=== PATIENT | female | born 2005 | race Two or more races ===

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

== ENCOUNTER 2024-02-08 14:37 | Outpatient (AMB) | payer OTHER, SELFPAY ==
--- NOTE | 2024-02-08 14:41 | A.OFFVISP_ITS ---
Intake Vital Signs 02/08/24 14:46 Height 5 ft 4.5 in Height percentile 75 Weight 138 lb Weight percentile 75 Measurement Type Standing Scale BMI 23.3 BMI percentile 75 Temp 98.1 F Temp Source Temporal Artery Scan Pulse 88 Pulse Source Pulse Oximeter BP 108/66 Blood Pressure Source Manual Cuff/Palpation Position Sitting Pulse Oximetry (%) 99 Pediatric Intake Visit Reasons: [facility] 18 year female Accompanied by: Self / Same As Patient Allergies Seasonal Allergies Allergy (Mild, Verified 02/08/24 14:42) sneezing, runny nose bee pollen Allergy (Unknown, Verified 02/08/24 14:42) Unknown mold Allergy (Unknown, Verified 02/08/24 14:42) Unknown Medication List - Last Reconciled 02/08/24 by Eunice Gavin MD epinephrine (EpiPen) 0.3 mg (0.3 mL) IM Q15M PRN infliximab-dyyb (Inflectra) 400 mg IV Q6W norethindrone-ethin estradiol 0.4-35 mg-mcg (Yaw (28)) 1 tab PO DAILY Dental Screening Dental Screen Date: 02/08/24 Did your child have a dental visit in the last 12 months for preventative care, such as check-ups/dental cleaning?: Yes Was there a time your child needed dental care in the last 12 months, but was not received?: No Can we apply fluoride varnish to your child's teeth today?: No Was dental information given to patient?: Patient has dentist HPI [facility] 18-21 Year Female since last appt she has been cutting down on marijuana use. she now works out at gym without going out to smoke during her workout. yesterday she went to the gym without using marijuana first- she usually smokes (pen) before she goes to the gym. she didnt like how she felt - she was too aware of people around her. she doesnt like being sober because she feels too much and she doesnt like it. she knows she needs to d/c use to health concerns but cant deal with how she feels when she is sober. she does not want to take lexapro- it gave her HAs and she didnt like how it made her feel. she also uses marijuana to help with her pain. it is not just GI pain but also joints. she did not schedule appt with GI to discuss breakthrough sxs and does not know when her next appt with them is. her therapist is virtual and is trying to get her to decrease to 1x/mo visits. she would like to continue with more frequent sessions and she feels like her therapist frequently forgets things she tells her and this really bothers her so she would like to find a new therapist. she would prefer to be in person for this Nutrition she struggles with eating. she often just isnt hungry and when she does eat she sometimes has SA and/or diarrhea. mostly she just doesnt feel hungry and has to force herself to eat. this is part of why she smokes marijuana- it helps her with appetite. recently she only wants to eat things that are sweet. everything else causes nausea Exercise Sports and activities: Reports plays individual sports (she is working out at the gym most days now) and watches <2 hours of screen time daily Exercise frequency: 5-6 times per week Genitourinary Urine output: normal Genitourinary: LMP unknown (on OCP and nexplanon) Dental Dental care: Reports receives dental care Behavioral Behavior: normal peer interactions Mental health: feels anxious Educational/Employment currently working at [email or web address] but plans to give her notice. 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 Work: part-time Living situation: lives at home education: attends school (she is doing great! mostly As. taking statistics/mongolian/psychology and film. 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[employer] Sexual sexual history: currently sexually active and control method Control Method: Oral Contraceptives Sleep has trouble falling asleep and marijuana also helps with this Sleep location: 4-7 years: own bed Safety Car safety: well child 16-17 years: seat belt Bicycle/ATV safety: rides a bicycle and wears a helmet Home Safety: safe practices around pool and water, Has poison control number, Water heater temp <120, Working smoke detector in home, Working carbon monoxide detector in home and Fire Extinguisher in home [facility] Substance Abuse Tobacco History Patient Tobacco Use Status: Never used Tobacco Alcohol History Alcohol intake: current Alcohol intake frequency: other (occasional) Substance Use History Use of substances other than those prescribed or required for medical reasons: Yes Substance Use Type: Marijuana Substance Use Frequency: Daily Counseling given: Counseling given and Referred to Counseling Pediatric Weight Assessment Diet counseling done: Yes Physical activity counseling done: Yes PFS Medical History (Updated 02/08/24 @ 16:17 by Eunice Gavin MD) Depression Prolonged menstrual cycle Environmental allergies Mild intermittent asthma Surgical History No pertinent past surgical history Family History (Updated 02/08/24 @ 15:39 by Elfego Maddox CMA) Mother Depression Father No problems noted. Sister Depression ADHD Maternal Grandmother Depression Maternal Aunt Bipolar disorder Alcohol abuse Social History (Updated 02/08/24 @ 15:37 by Elfego Maddox CMA) Household Members: Family Household Members Other:: lives with mother. sees dad. Both parents involved: Yes Alcohol intake: current Substance Use Type: Marijuana Cognitive needs: No Hearing needs: No Vision needs: No Questionnaire CRAFFT Screening Tool PART A: In the PAST 12 MONTHS, did you: Drink any alcohol (more than few sips)? (Do not count sips of alcohol taken during family or adventism events.): Yes Smoke any marijuana or hashish?: Yes Use anything else to get high? (includes illegal drugs, over the counter/prescription drugs, or things that you sniff/byrne?): No PART B: If answered YES to ANY above: Have you ever been in a CAR driven by someone (including yourself) who was high or had been using alcohol or drugs?: No Do you ever use alcohol or drugs to RELAX, feel better about yourself, or fit in?: Yes Do you ever use alcohol or drugs while you are by yourself, or ALONE?: Yes Do you ever FORGET things while using alcohol or drugs?: Yes Do your FAMILY or FRIENDS ever tell you that you should cut down on your drinking or drug use?: Yes Have you ever gotten into TROUBLE while you were using alcohol or drugs?: No CRAFFT Assessment Charge Crafft: HOLGERT 38156 PHQ-9 Over the last 2 weeks, how often have you been bothered by any of the following problems? 1. Little interest or pleasure in doing things: several days 2. Feeling down, depressed, or hopeless: several days 3. Trouble falling or staying asleep, or sleeping too much: several days 4. Feeling tired or having little energy: several days 5. Poor appetite or overeating: not at all 6. Feeling bad about yourself - or that you are a failure or have let yourself or your family down: several days 7. Trouble concentrating on things, such as reading the newspaper or watching television: several days 8. Moving or speaking so slowly that other people could have noticed. Or the opposite - being so fidgety or restless that you have been moving around a lot more than usual: not at all 9. Thoughts that you would be better off or of hurting yourself in some way: not at all Total score: 6 Depression Screening Interpretation: Negative Depression Screening Done: Yes 92834 - PHQ-9 Billing: Yes Source: Developed by Drs. 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 Thrive Questionnaire Date Thrive assessed: 02/08/24 I am a: Patient What is your living situation today?: I have a steady place to live Within the past 12 months, did the food you bought not last and you didn't have the money to get more?: Never true Within the past 12 months, did you worry whether your food would run out before you got money to buy more?: Never true Do you have trouble paying for medicines?: Yes Do you have trouble getting transportation to medical appointments?: No Do you have trouble paying your heating and electricity bill?: No Do you have trouble taking care of your child, family member or friend?: No Do you have trouble with day-to-day activities such as bathing, preparing meals, shopping, managing finances, etc.?: No Are you currently unemployed and looking for a job?: No Are you interested in more education?: No THRIVE Score: 0 ACT Questionnaire In the past 4 weeks, how much of the time did your asthma keep you from getting as much done at work, school or at home?: None of the time During the past 4 weeks, how often have you had shortness of breath?: 1-2 times a week During the past 4 weeks, how often did your asthma symptoms wake you up at night or earlier than usual in the morning?: Not at all During the past 4 weeks, how often have you had to use your rescue inhaler or nebulizer medication?: Not at all How would you rate your asthma control during the past 4 weeks?: Completely controlled ACT Interpretation: Negative Score: 24 JAVI-7 AMB Questionnaire JAVI-7 Date JAVI - 7 assessed: 02/08/24 Feeling nervous, anxious, or on edge: 1 = Several days Not being able to stop or control worryin = Not at all Worrying too much about different things: 1 = Several days Trouble relaxin = Not at all Being so restless that it is hard to sit still: 0 = Not at all Becoming easily annoyed or irritable: 2 = More than half the days Feeling afraid as if something awful might happen: 0 = Not at all Total JAVI-7 score (0-4 normal; 5-9 mild; 10-14 moderate; 15-21 severe): 4 Source: Developed by Drs. 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 JAVI-7 Assessment Billing JAVI-7 Assessment Tool: JAVI-7 Assessment 63340 Review of Systems Const All systems reviewed & are unremarkable except as noted in HPI and below PE 13-21 years Constitutional General: alert and active Nutritional appearance: well nourished HENMT Ears: Reports external ears normal, TMs normal bilaterally and EAC's normal Teeth: Reports dentition normal Throat: Reports posterior oropharynx normal Eyes Eyes: Reports appearance normal (normal fundoscopic exam bilateral) Conjunctivae: Reports conjunctivae normal Pupils: Reports PERRL EOM: Reports EOM intact bilaterally Neck Appearance: Reports normal appearance, no masses and FROM Lymphatic: Reports no lymphadenopathy noted Resp Effort & Inspection: Reports normal respiratory effort Auscultation: Reports clear to auscultation bilaterally Cardio Rate: Reports regular rate Rhythm: Reports regular rhythm Heart sounds: Reports S1 normal and S2 normal (no murmur) GI Palpation: Reports soft, non-tender, no hepatomegaly, no splenomegaly and no masses Auscultation: Reports normal bowel sounds Musc Thoracic/Lumbar Spine: Reports thoracic and lumbar spine normal to inspection Skin General: Reports no rashes or lesions noted Neuro General: Reports oriented Motor Exam: Reports normal strength and tone (CN 2-12 grossly normal) and normal gait and balance Assessment & Plan Assessment & Plan (1) Encounter for well adult exam with abnormal findings: Code(s): Z00.01 - Encounter for general adult medical examination with abnormal findings Plan: Discussed age-appropriate AG including peer relationships/peer pressure, family relationships, abstinence/safe sex, healthy relationships/sexuality, internet safety, drug/alcohol/cigarette/vaping/marijuana avoidance, sleep, healthy diet, importance of daily physical activity, mood, stress management, conflict management, driving safety, seatbelt use, dental health, future plans, gun safety, (2) Anxiety: Code(s): F41.9 - Anxiety disorder, unspecified Plan: discussed need for med that will treat her anxiety instead of using marijuana to self treat. given chronic illness contributing to sxs and anxiety will d/w [facility] and request consult. f/u 3 mos/sooner prn (3) Marijuana dependence: Code(s): F12.20 - Cannabis dependence, uncomplicated Plan: counseled extensively regarding risks of use. discussed self-treatment for anxiety. re-iterated need to work with GI to develop alternative plan to manage her chrohns sxs. she has decreased use and plans to continue to do so. discussed treatment programs -she is willing to discuss options with CN. message sent regarding programs and to help with finding new therapist. f/u 3 mos/sooner prn Coding Level of Care Code Est Pt Prev Care 18-39y(13036) Diagnoses Encounter for well adult exam with abnormal findings Z00.01 Anxiety F41.9 Marijuana dependence F12.20 Additional Codes CRAFFT Assessment Charge - Crafft: CRAFFT 56455 ([id number]) JAVI-7 Assessment Billing - JAVI-7 Assessment Tool: JAVI-7 Assessment 53803 ([id number])
[2024-02-08 14:46] VITALS: BP 108/66; PULSE 88; TEMP 36.7; O2SAT 99; BMI 23.3
== END 2024-02-08 15:17 | disposition home or self-care (01) ==
PROVIDERS: PCP Pediatrics; Visit Provider Pediatrics
DX: Z00.01 Encounter for general adult medical examination with abnormal findings (principal); F41.9 Anxiety disorder, unspecified; F12.20 Cannabis dependence, uncomplicated; Z13.30 Encounter for screening examination for mental health and behavioral disorders, unspecified
CPT/HCPCS: 96127; 96160; 99395

== ENCOUNTER 2024-02-23 08:37 | Outpatient (AMB) | payer OTHER, SELFPAY ==
--- NOTE | 2024-02-23 08:35 | MHC.OFVISPED ---
Intake Vital Signs 02/23/24 08:45 Height 5 ft 4.5 in Height percentile 75 Weight 134 lb 8 oz Weight percentile 75 Measurement Type Standing Scale BMI 22.7 BMI percentile 75 Temp 98.2 F Temp Source Temporal Artery Scan Pulse 93 Pulse Source Pulse Oximeter Pulse Oximetry (%) 99 Pediatric Intake Visit Reasons: White spot on tonsil Accompanied by: Self / Same As Patient Allergies Seasonal Allergies Allergy (Mild, Verified 02/23/24 08:38) sneezing, runny nose bee pollen Allergy (Unknown, Verified 02/23/24 08:38) Unknown mold Allergy (Unknown, Verified 02/23/24 08:38) Unknown Dental Screening Dental Screen Date: 02/08/24 HPI HPI Comments Details: 18 year old female with history of Crohn's disease on immunosuppressant treatment presents for evaluation of white debris in tonsils. More on left side than right. Admits to PND, intermittent throat irritation. No sig pain in throat, no dysphagia or SOB. No recent fevers/chills. Denies sig halitosis. Was able to remove debris with salt water gargles. [facility] Medical History Depression Prolonged menstrual cycle Environmental allergies Mild intermittent asthma Surgical History No pertinent past surgical history Family History Mother Depression Father No problems noted. Sister Depression ADHD Maternal Grandmother Depression Maternal Aunt Bipolar disorder Alcohol abuse Social History Household Members: Family Household Members Other:: lives with mother. sees dad. Both parents involved: Yes Alcohol intake: current Alcohol intake frequency: other (occasional) Substance Use Type: Marijuana Cognitive needs: No Hearing needs: No Vision needs: No Review of Systems Const All systems reviewed & are unremarkable except as noted in HPI and below Pediatric Exam Const Constitutional General: no acute distress, well developed, alert and awake Nutritional appearance: well nourished [facility] Head: normal to inspection, normocephalic and atraumatic Ears: hearing grossly normal bilaterally, external ears normal, TM's normal bilaterally and EAC's normal Nose: Normal external nose present, Normal nares present and Normal nasal mucous membranes and turbinates present Mouth: Normal oral and palatal mucosa present, lip normal, tongue normal, moist mucous membranes and palate normal Throat: posterior oropharynx normal, tonsils normal (2+, cryptic on left, no debris) and uvula midline Eyes General: appearance normal, both eyes and all related structures Eyelids: eyelids normal Sclerae: sclerae normal Pupils: Equal, round and reactive pupils present Neck Lymphatic: no lymphadenopathy noted Chest Chest: normal inspection of the chest Resp Effort & Inspection: normal respiratory effort Auscultation: clear to auscultation bilaterally Cardio Rate: regular rate Rhythm: regular rhythm Heart sounds: S1 normal heart sound present and S2 normal heart sound present Neuro Cranial nerves: Yes Equal, round and reactive pupils present Assessment & Plan Assessment & Plan (1) Calculus of tonsil: Code(s): J35.8 - Other chronic diseases of tonsils and adenoids Plan: No signs of infection on today's exam. Reassurance provided. Recommended regular gargles with salt water or Biotene mouth wash. Can manually disimpact tonsils with blunt object/water pik. Consider ENT referral for chronic throat pain or sig halitosis. Otherwise, f/u as needed. (2) PND (post-nasal drip): Code(s): R09.82 - Postnasal drip Plan: Recommended trial of Flonase, 2 sprays in each nostril once a day. F/u if sx worsen or do not improve. Coding Level of Care Code Est Pt Level 3 (98787) Diagnoses Calculus of tonsil J35.8 PND (post-nasal drip) R09.82
[2024-02-23 08:45] VITALS: PULSE 93; TEMP 36.8; O2SAT 99; BMI 22.7
== END 2024-02-23 08:58 | disposition home or self-care (01) ==
PROVIDERS: PCP Pediatrics; Visit Provider Physician Assistant
DX: J35.8 Other chronic diseases of tonsils and adenoids (principal); R09.82 Postnasal drip
CPT/HCPCS: 99213

== ENCOUNTER 2024-04-06 15:48 | Outpatient (AMB) | payer OTHER, SELFPAY ==
--- NOTE | 2024-04-06 15:54 | AM.OFFVISNUR ---
Intake Intake Visit Reasons: TB screen Allergies Seasonal Allergies Allergy (Mild, Verified 02/23/24 08:38) sneezing, runny nose bee pollen Allergy (Unknown, Verified 02/23/24 08:38) Unknown mold Allergy (Unknown, Verified 02/23/24 08:38) Unknown Nursing Note Pt is here today for ppd.. PPD planted left forearm. Pt's mom is an RN, she will call on Tuesday with reading. Office Meds tuberculin PPD 5 tub. unit/0.1 mL intradermal injection solution Performing Provider: Eunice Gavin MD Performing Location: [facility] [place] Pediatric Care Administered by: Claribel Garcia RN on 04/06/24 16:02 Dose Route Admin Location Dispensed Lot Number Expiration Date NDC Basic [employer] 0.1 mL intradermal left lower forearm 0.1 mL [id number] 03/06/27 07995-007-73 [employer] Coding Assessment & Plan Assessment & Plan Orders: Orders AMB PPD Planted 04/06/24 Z11.1 - Encounter for screening for respiratory tuberculosis
== END 2024-04-06 16:03 | disposition home or self-care (01) ==
PROVIDERS: PCP Pediatrics; Visit Provider Pediatrics
DX: Z11.1 Encounter for screening for respiratory tuberculosis (principal)
CPT/HCPCS: 86580

== ENCOUNTER 2024-05-16 15:29 | Outpatient (AMB) | payer OTHER, SELFPAY ==
--- NOTE | 2024-05-16 15:56 | A.OFFVISP_ITS ---
Vital Signs 05/16/24 15:57 Weight 134 lb 6 oz Weight percentile 75 Temp 99.1 F Temp Source Temporal Artery Scan Pulse 88 Pulse Source Pulse Oximeter BP 94/62 Pulse Oximetry (%) 98 Pediatric Intake Visit Reasons: follow up Hourly Sales Staff Required: No Accompanied by: alone Allergies Seasonal Allergies Allergy (Mild, Verified 05/16/24 15:57) sneezing, runny nose bee pollen Allergy (Unknown, Verified 05/16/24 15:57) Unknown mold Allergy (Unknown, Verified 05/16/24 15:57) Unknown Medication List - Last Reconciled 05/16/24 by Eunice Gavin MD epinephrine (EpiPen) 0.3 mg (0.3 mL) IM Q15M PRN infliximab-dyyb (Inflectra) 400 mg IV Q6W norethindrone-ethin estradiol 0.4-35 mg-mcg (Carlyleva (28)) 1 tab PO DAILY Dental Screening Dental Screen Date: 02/08/24 HPI HPI follow up: Details: working FT at [employer] for the summer. gym at least 4x/wk. does not use marijuana before work or gym or during work day. didnt smoke at all for a full week but then got a period and has cramps and is using marijuana for this. she also got a GI illness from a child in daycare and this caused her to have prolonged diarrhea. it is getting better. she has a new therapist and is seeing her qoweek in person. she likes her alot. she had some SI 1 month ago. she does not have any current SI. what typically triggers SI for her is if she is really broke or fighting with mom. she denies any active suicidal intent - only passive ideation- no plan. she does not have an appt with [facility]. she says they told her she had to be in state [facility] to make the appt - not just to have the appt as either TH or in person. she is not sure if the therapist can help with a psych referral. [facility] Medical History Depression Prolonged menstrual cycle Environmental allergies Mild intermittent asthma Surgical History No pertinent past surgical history Family History Mother Depression Father No problems noted. Sister Depression ADHD Maternal Grandmother Depression Maternal Aunt Bipolar disorder Alcohol abuse Social History Household Members: Family Household Members Other:: lives with mother. sees dad. Both parents involved: Yes Alcohol intake: current Alcohol intake frequency: other (occasional) Substance Use Type: Marijuana Cognitive needs: No Hearing needs: No Vision needs: No Review of Systems Const Reports as per HPI GI Reports as per HPI Psych Reports as per HPI Pediatric Exam Const Constitutional General: healthy appearing and no acute distress Psych Appearance: grossly normal Mental Status: mental status grossly normal Speech and movement: Normal speech and movement present Mood: congruent mood Attitude: cooperative Thought process: Normal thought process present Assessment & Plan Assessment & Plan (1) Anxiety: Code(s): F41.9 - Anxiety disorder, unspecified Category: Medical (2) Marijuana dependence: Code(s): F12.20 - Cannabis dependence, uncomplicated Category: Medical Plan currently doing fairly well and has cut back a lot on marijuana use. discussed need for psychiatric eval for med consult. she will d/w therapist and if therapist is not able to refer her to [place] based provider will call back and at that point will [place] back to [facility] for eval or new recommendation. in the meantime encouraged her to continue to decrease/discontinue marijuana use. also discussed need to contact crisis for any SI recurrence. f/u 3 mos/sooner prn.
[2024-05-16 15:57] VITALS: BP 94/62; PULSE 88; TEMP 37.3; O2SAT 98
== END 2024-05-16 16:15 | disposition home or self-care (01) ==
PROVIDERS: PCP Pediatrics; Visit Provider Pediatrics
DX: F41.9 Anxiety disorder, unspecified (principal); F12.20 Cannabis dependence, uncomplicated
CPT/HCPCS: 99214

== ENCOUNTER 2024-08-17 15:46 | Outpatient (AMB) | payer OTHER, SELFPAY ==
--- NOTE | 2024-08-17 15:50 | MHC.OFVISPED ---
Vital Signs 08/17/24 15:58 Height 5 ft 4.5 in Height percentile 75 Weight 142 lb Weight percentile 75 BMI 24.0 BMI percentile 75 Temp 98.7 F Temp Source Oral Pulse 76 Pulse Source Pulse Oximeter BP 112/70 Pulse Oximetry (%) 95 Pediatric Intake Visit Reasons: BH-Depression [employer] Packages Leak Tester Required: No Accompanied by: Mother Allergies Seasonal Allergies Allergy (Mild, Verified 08/17/24 15:50) sneezing, runny nose bee pollen Allergy (Unknown, Verified 08/17/24 15:50) Unknown mold Allergy (Unknown, Verified 08/17/24 15:50) Unknown Medication List - Last Reconciled 08/17/24 by Eunice Gavin MD epinephrine (EpiPen) 0.3 mg (0.3 mL) IM Q15M PRN infliximab-dyyb (Inflectra) 400 mg IV Q6W norethindrone-ethin estradiol 0.4-35 mg-mcg (Carlyleva (28)) 1 tab PO DAILY Dental Screening Dental Screen Date: 02/08/24 HPI HPI BH-Depression: Details: she is seeing same therapist and really likes her. she sees her once every 3 weeks. therapist referred her to psychiatrist but she has not scheduled anything. she 1) doesnt think she wants/needs to take medication and 2) doesnt want to have one more doctor. she does not think she needs meds as she thinks her mood is generally pretty good. she reports passive SI approx 1 month ago (answered yes on form but denies any current or recent SI). (PHQ9 score is 8 but positive because of +SI). she feels that she has seasonal depression only (wintertime). she took lexapro in the past and it caused her to have HAs so she does not want to take it again. she continues to use marijauna daily. she has been using it more often recently because mom has been on me a lot and I just cant deal with mom . Marijuana makes her feel happy and then she can deal with it. It also helps relieve stomach cramps and joint pain that she gets so she also smokes for this reason. she does not consider marijuana to be a medication because it is a plant. she gets her marijuana from her mom who gets it from a dispensary. she saw GI and he advised her that she most likely has cannabis induced GI sxs. PFSH Medical History Depression Prolonged menstrual cycle Environmental allergies Mild intermittent asthma Surgical History No pertinent past surgical history Family History Mother Depression Father No problems noted. Sister Depression ADHD Maternal Grandmother Depression Maternal Aunt Bipolar disorder Alcohol abuse Social History Household Members: Family Household Members Other:: lives with mother. sees dad. Both parents involved: Yes Alcohol intake: current Alcohol intake frequency: other (occasional) Substance Use Type: Marijuana Cognitive needs: No Hearing needs: No Vision needs: No PHQ-9: Modified for Teens Feeling down, depressed, irritable or hopeless?: Several Days Little interest or pleasure in doing things?: Several Days Trouble falling asleep, staying asleep, or sleeping too much?: Not at all Poor appetite, weight loss or overeating?: Nearly every day Feeling tired, or having little energy?: Several Days Feeling bad about yourself-or feeling that you are a failure, or that you let yourself/your family down?: Several Days Trouble concentrating on things like school work, reading, or watching TV?: Not at all Moving/speaking so slowly that other people have noticed? Or the opposite-being so fidgety that you were moving more than usual?: Not at all Thoughts that you would be better off , or of hurting yourself in some way?: Several Days In the past year have you felt depressed or sad most days, even if you felt okay sometimes?: Yes How difficult have these problems made it for you to do your work, take care of things at home, or get along with other?: Not difficult at all Has there been a time in the past month when you have had serious thoughts about ending your life?: Yes Have you ever, in your entire life, tried to kill yourself or made a suicide attempt?: Yes Score: 8 Depression Screening Interpretation: Positive Depression Screening Follow-up: Existing condition, New Medication prescribed, Community Mental Health Worker F/U and Follow-up Visit Requested Depression Screening Done: Yes PHQ Assessment Billing PHQ Assessment Tool: PHQ Assessment 26668 Review of Systems Const Reports as per HPI GI Reports as per HPI Psych Reports as per HPI Pediatric Exam Const Constitutional General: healthy appearing and no acute distress Psych Appearance: grossly normal Mental Status: mental status grossly normal Speech and movement: Normal speech and movement present Mood: congruent mood Attitude: cooperative Thought content: no suicidality Assessment & Plan Assessment & Plan (1) Anxiety: Code(s): F41.9 - Anxiety disorder, unspecified Category: Medical Plan: today she is agreeable to trial meds to help with mood regulation specifically irritability and reactivity. Reviewed options for meds including potential side effects and adverse reactions including BBW. Rx sent for sertraline. Advised crisis for any suicidal ideation. Followup in one month () (2) Cannabis use disorder: Code(s): F12.90 - Cannabis use, unspecified, uncomplicated Category: Medical Plan: discussed pts dependence on marijuana, adverse sxs from marijuana, and use of it as medication for mood. counseled re lack of oversight of dispensaries and risks involved with regular use. she is contemplative today and agrees to try to cut down. she states that she is not able to completely quit but will decrease use. message to CN to provide pt with info about programs to support her with this process. Plan total visit time spent = 40 minutes including counseling, prescription management and documentation. Medications: New sertraline take 12.5 mg (0.5 tab) by mouth once daily for 1 week then increase to 25 mg (one tab)by mouth once daily 30 tabs 0RF JAVI-7 AMB Questionnaire JAVI-7 Date JAVI - 7 assessed: 08/17/24 Source: Developed by Drs. Santiago Gould, Gloria Silver, Cyrus Oliver and colleagues, with an educational job from [employer].
[2024-08-17 15:58] VITALS: BP 112/70; PULSE 76; TEMP 37.1; O2SAT 95; BMI 24.0
== END 2024-08-17 16:30 | disposition home or self-care (01) ==
PROVIDERS: PCP Pediatrics; Visit Provider Pediatrics
DX: F41.9 Anxiety disorder, unspecified (principal); F12.20 Cannabis dependence, uncomplicated; Z13.39 Encounter for screening examination for other mental health and behavioral disorders

== ENCOUNTER → 2024-08-17 15:46 | Outpatient (BNVA) | payer OTHER, SELFPAY | PROVIDERS: PCP Pediatrics; Visit Provider Pediatrics | DX: F41.9 Anxiety disorder, unspecified (principal); F12.20 Cannabis dependence, uncomplicated | CPT/HCPCS: 96127 ==

== ENCOUNTER 2024-11-21 11:07 | Outpatient (AMB) | payer OTHER, SELFPAY ==
--- NOTE | 2024-11-21 11:07 | A.OFFVISP_ITS ---
Vital Signs 11/21/24 11:12 Height 5 ft 4.5 in Height percentile 75 Weight 145 lb 2 oz Weight percentile 75 Measurement Type Standing Scale BMI 24.5 BMI percentile 85 Temp 98.3 F Temp Source Temporal Artery Scan Pulse 86 Pulse Source Pulse Oximeter BP 112/64 Blood Pressure Source Manual Cuff/Palpation Position Sitting Pulse Oximetry (%) 98 Pediatric Intake Visit Reasons: UC f/u dx RSV on 11/16, ongoing cough, eczema flare Accompanied by: Self / Same As Patient Allergies Seasonal Allergies Allergy (Mild, Verified 11/21/24 11:08) sneezing, runny nose bee pollen Allergy (Unknown, Verified 11/21/24 11:08) Unknown mold Allergy (Unknown, Verified 11/21/24 11:08) Unknown Medication List - Last Reconciled 11/21/24 by Rosina Silver PA-C epinephrine (EpiPen) 0.3 mg (0.3 mL) IM Q15M PRN hydrocortisone 2.5% 1 appl topical BID infliximab-dyyb (Inflectra) 400 mg IV Q6W norethindrone-ethin estradiol 0.4-35 mg-mcg (Balalirezava (28)) 1 tab PO DAILY sertraline take 12.5 mg (0.5 tab) by mouth once daily for 1 week then increase to 25 mg (one tab)by mouth once daily Dental Screening Dental Screen Date: 02/08/24 HPI Comments Details: The patient is a 19-year-old female presenting with concerns related to RSV and eczema. The patient reports initial symptoms of RSV on Nov 10, following exposure on Nov 09, and was subsequently diagnosed on Nov 16 at an urgent care center. Symptoms included difficulty breathing on Nov 13 and , and persistent coughing. She has a history of asthma which complicates her condition. 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 Notes she has been feeling better despite lingering cough and today is wondering if she is safe to return to work. The patient's eczema, which has been present since August, has worsened over the past week, possibly due to physical stress from illness. It is primarily affecting her hands and was causing significant discomfort, impacting daily activities and care routines with young children at her workplace. [facility] Medical History Depression Prolonged menstrual cycle Environmental allergies Mild intermittent asthma Surgical History No pertinent past surgical history Family History Mother Depression Father No problems noted. Sister Depression ADHD Maternal Grandmother Depression Maternal Aunt Bipolar disorder Alcohol abuse Social History Household Members: Family Household Members Other:: lives with mother. sees dad. Both parents involved: Yes Alcohol intake: current Alcohol intake frequency: other (occasional) Substance Use Type: Marijuana Cognitive needs: No Hearing needs: No Vision needs: No Review of Systems Const All systems reviewed & are unremarkable except as noted in HPI and below Pediatric Exam Const Constitutional General: cooperative, healthy appearing, comfortable and no acute distress Nutritional appearance: normal and well nourished HENPR Head: normal to inspection, normocephalic and atraumatic Ears: external ears normal, TM's normal bilaterally and EAC's normal Nose: Normal external nose present, Normal nares present and Nasal discharge present clear Mouth: Normal oral and palatal mucosa present, oropharynx normal and moist mucous membranes Throat: uvula midline and abnormal tonsil (mildly enlarged and erythematous, no exudate or petechiae noted.) Eyes General: appearance normal, both eyes and all related structures Pupils: Equal, round and reactive pupils present Neck Thyroid: Thyroid normal Lymphatic: no lymphadenopathy noted Resp Effort & Inspection: normal respiratory effort Auscultation: clear to auscultation bilaterally, no crackles, no rales, no rhonchi, no stridor and no wheezes Cardio Rate: regular rate Rhythm: regular rhythm Heart sounds: S1 normal heart sound present and S2 normal heart sound present Skin Other: patches of eczema noted on the palms of the bilateral hands, no signs of secondary infection Neuro Cranial nerves: Yes Equal, round and reactive pupils present Assessment & Plan Assessment & Plan (1) Viral upper respiratory illness: Code(s): J06.9 - Acute upper respiratory infection, unspecified Plan: - Consider ongoing RSV symptoms, advise wearing a mask if actively coughing, particularly when engaging with others at work or at home. - Recommend trial use of asthma inhaler to potentially alleviate cough symptoms. - F/up as needed for any new or worsening symptoms. (2) Dyshidrotic eczema: Code(s): L30.1 - Dyshidrosis [pompholyx] Plan: - Manage eczema with continued use of Aquaphor and introduce a low-potency steroid cream, monitoring its effectiveness over a week. - Schedule follow-up to evaluate the need for a stronger topical treatment if there?s no improvement in the eczema condition. - Discussed maintaining moisturizing routines post washing hands, avoiding potential irritants, and considering unscented, dye-free products such as Aveeno or Curel. Patient was informed and verbally consented to the use of an ambient scribe for clinic note documentation during this visit. Medications: New hydrocortisone 2.5% 1 appl topical BID 90 grams 0RF Coding Level of Care Code Est Pt Level 4 (07099) Diagnoses Viral upper respiratory illness J06.9 Dyshidrotic eczema L30.1
[2024-11-21 11:12] VITALS: BP 112/64; PULSE 86; TEMP 36.8; O2SAT 98; BMI 24.5
== END 2024-11-21 11:29 | disposition home or self-care (01) ==
PROVIDERS: PCP Pediatrics; Visit Provider Physician Assistant
DX: J06.9 Acute upper respiratory infection, unspecified (principal); L30.1 Dyshidrosis [pompholyx]

== ENCOUNTER → 2024-11-21 11:07 | Outpatient (BNVA) | payer OTHER, SELFPAY | PROVIDERS: PCP Pediatrics; Visit Provider Physician Assistant | DX: J06.9 Acute upper respiratory infection, unspecified (principal); L30.1 Dyshidrosis [pompholyx] ==

== ENCOUNTER 2024-12-03 10:48 | Outpatient (AMB) | payer OTHER, SELFPAY ==
--- NOTE | 2024-12-03 10:48 | A.OFFVISP_ITS ---
Pediatric Intake Visit Reasons: TH- vomiting, diarrhea, rash [phone] Allergies Seasonal Allergies Allergy (Mild, Verified 12/03/24 10:49) sneezing, runny nose bee pollen Allergy (Unknown, Verified 12/03/24 10:49) Unknown mold Allergy (Unknown, Verified 12/03/24 10:49) Unknown Medication List - Last Reconciled 12/03/24 by Rosina Silver PA-C epinephrine (EpiPen) 0.3 mg (0.3 mL) IM Q15M PRN hydrocortisone 2.5% 1 appl topical BID infliximab-dyyb (Inflectra) 400 mg IV Q6W norethindrone-ethin estradiol 0.4-35 mg-mcg (Balziva (28)) 1 tab PO DAILY sertraline take 12.5 mg (0.5 tab) by mouth once daily for 1 week then increase to 25 mg (one tab)by mouth once daily triamcinolone acetonide 0.025% 1 appl topical BID Dental Screening Dental Screen Date: 02/08/24 HPI Comments Details: The patient is a 19-year-old female presenting with gastrointestinal symptoms including diarrhea and nausea. She reports that her symptoms began last night and were notably present this morning. She relates this to possibly consuming a Red Bull energy drink, despite typically avoiding such beverages. In addition to nausea and diarrhea, she reports a history of RSV infection, which was diagnosed recently. 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 She is also using a prescribed hydrocortisone cream to manage dermatitis, which has shown marginal improvement, though her skin remains sensitive and occasionally cracked. The saline nasal rinses have provided some relief from nasal congestion, although the symptoms persist. [facility] Medical History Depression Prolonged menstrual cycle Environmental allergies Mild intermittent asthma Surgical History No pertinent past surgical history Family History Mother Depression Father No problems noted. Sister Depression ADHD Maternal Grandmother Depression Maternal Aunt Bipolar disorder Alcohol abuse Social History Household Members: Family Household Members Other:: lives with mother. sees dad. Both parents involved: Yes Alcohol intake: current Alcohol intake frequency: other (occasional) Substance Use Type: Marijuana Cognitive needs: No Hearing needs: No Vision needs: No Review of Systems Const All systems reviewed & are unremarkable except as noted in HPI and below Pediatric Exam Const Constitutional General: cooperative, healthy appearing, comfortable and no acute distress Telehealth Telehealth Telehealth Platform: [employer] Location of provider rendering services: practice address Location of patient: address on file Patient Identification confirmed using: Name, : Yes Telehealth method: video Patient verbally consented to treatment: Yes Patient verbally consented to billing insurance company: Yes Patient informed of any privacy concerns related to visit: Yes Minutes spent on Phone/Video with Pt.: 15 Assessment & Plan Assessment & Plan (1) Viral gastroenteritis: Code(s): A08.4 - Viral intestinal infection, unspecified Plan: During our conversation, we discussed the potential for current symptoms being related to both viral exposure at work and consumption of the energy drink. I explained that gastrointestinal irritation from such beverages is common, and avoiding them may alleviate symptoms. Regarding the dermatitis, since hydroco rtisone has provided minimal relief, I suggested trying a stronger steroid cream and continuing hydration and gentle care for skin areas affected. Additionally, saline rinses should continue to help manage nasal congestion. I confirmed that she could return to work on Tuesday but will provide a letter excusing her from work until then as needed. (2) Dyshidrotic eczema: Code(s): L30.1 - Dyshidrosis [pompholyx] Plan: - Avoid the consumption of energy drinks. - Refrain from vaping to help alleviate respiratory symptoms. - Stay hydrated with fluids like Gatorade and Pedialyte. - Continue to use saline nasal rinses regularly. - Use the prescribed stronger steroid cream for dermatitis. - Consume qhee-dm-yzlsod foods such as soups, crackers, and toast. - Contact clinic if symptoms worsen or new symptoms arise before the ENT appointment. Medications: New triamcinolone acetonide 0.025% 1 appl topical BID 80 grams 0RF Coding Level of Care Code Tele Est Pt Level 3 (62326) Diagnoses Viral gastroenteritis A08.4 Dyshidrotic eczema L30.1
--- OUTSIDE RECORDS SUMMARY | 2024-12-03 15:35 | XMS_ITS ---
Author Name [facility] Organization Unknown History of Medication Use Medication Directions Dispensed Refills Start Date End Date Stat sertraline (ZOLOFT) 25 mg tablet Take 1 tablet (25 mg total) by mouth daily. 08/17/2024 active PANTOprazole (PROTONIX) 40 MG tablet Take 1 tablet by mouth 09/22/2023 active sertraline (ZOLOFT) 25 MG tablet Please see attached for detailed directions 08/17/2024 active Problems Problem Status Onset Date Problem Type Date of Resolution Source Gastroesophageal reflux disease, unspecified whether esophagitis present active En[facility]osisAct [facility] Acute upper respiratory infection due to respiratory syncytial virus (RSV) active 2024-11-16 ProblemAct [facility] Sore throat active [facility] Crohn's disease of small and large intestines with complication (HCC) active [facility] Acute cough active 2024-11-16 ProblemAct [facility] Tonsil stone active [facility] Nausea active [facility]Diagn[facility]Act [facility]
--- OUTSIDE RECORDS SUMMARY | 2024-12-03 15:35 | XMS_ITS | Referral Summary ---
Author Organization [facility] Address [address] [place] [address] Care Team Providers Care Servicer Travel Trailers Name Role Phone Eunice Gavin MD Primary Care Provider [phone] Source Comments Please note that some or all of the patient's information could have additional privacy protections. State laws allow health care providers to render certain types of treatment to minors without parental consent. Please do not assume that this information can be shared solely by obtaining just the consent of the patient's parent/guardian. Please determine if all or part of the patient's care was rendered without parent/guardian involvement. And, if so, obtain the minor's consent prior to disclosure.[facility] Encounters Date Type Department Care Team Description 09/07/2024 1:00 PM EDT Office Visit [facility] (Otolaryngology)[address] [phone] Salvador Ramos APRN Tonsil stone (Primary Dx); Sore throat from Last 3 Months Allergies Active Allergy Reactions Criticality Noted Date Comments Bee Pollen 09/07/2024 Seasonal 09/07/2024 Medications inFLIXimab-dyyb (INFLECTRA) 100 mg Recon Soln Inject 400 mg into the vein 4 Active ondansetron (ZOFRAN) 4 MG tablet Take 4 mg by mouth 4 Active PANTOprazole (PROTONIX) 40 MG tablet Take 1 tablet by mouth 3 09/11/20 25 Active sertraline (ZOLOFT) 25 MG tablet Please see attached for detailed directions 4 Active Active Problems No known active problems Social History Tobacco Use Types Packs/Day Years Used Date Smoking Tobacco: Never Smokeless Tobacco: Current Tobacco Cessation:Ready to Q uit: Not Asked; Counseling Given: Not Answered Comments:mom Alcohol Use Standard Drinks/Week Comments Not Currently 0 (1 standard drink = 0.6 oz pur e alcohol) Other Needs Answer Date Recorded Anything else about your child you'd like help w ith? Not on file 04/26/2024 Share good news about positive changes: Not on f ile 04/26/2024 Comments Unknown Sex and Gender Information Value Date Recorded Sex Assigned at Not on file Legal Sex Female 2:45 PM EDT Gender Identity Not on file Sexual Orientation Not on file Last Filed Vital Signs Vital Sign Reading Time Taken Comments Blood Pressure - - Pulse - - Temperature - - Respiratory Rate - - Oxygen Saturation - - Inhaled Oxygen Concentration - - Weight 64.1 kg (141 lb 5 oz) 09/07/2024 1:18 PM EDT Height 162.5 cm (5' 3.98 ) 09/07/2024 1:18 PM ED T Body Mass Index 24.27 09/07/2024 1:18 PM EDT Plan of Treatment Upcoming Encounters Date Type Department Care Team (Late st Contact Info) Description 01/07/2025 9:00 AM EST Office Visit [facility] (Otolaryngology), [address] [phone] Salvador Ramos APRN [address] [place] [id number] Insurance CHOICE PLUS SUZIE Mukherjee Care Teams Servicer Travel Trailers Relationship Specialty Start Date End Date Eunice Gavin MD [address] [place] [address] DR EMERY, [place] [address] PCP - General General Pediatrics 04/26/24
--- OUTSIDE RECORDS SUMMARY | 2024-12-03 15:35 | XMS_ITS | Clinical Summary ---
Author Organization [facility] Address [address] [place] [address] Care Team Providers Care Sewer Line Photo Inspector Name Role Phone Eunice Gavin MD Primary Care Provider [phone] Social History Tobacco Use Types Packs/Day Years Used Date Smoking Tobacco: Never Assessed Sex and Gender Information Value Date Recorded Sex Assigned at Not on file Gender Identity Not on file Sexual Orientation Not on file Plan of Treatment Upcoming Encounters Date Type Department Care Team (Late st Contact Info) Description 12/04/2024 2:30 PM EST [place] [facility] [address] [place] [phone] Maritza Rashid, TOOTH CUTTER CLUTCH [facility] [address] [place] [address] Health Maintenance Due Date Last Done Comments Hepatitis C Virus Screening 2004 HIV Screening 2017 HPV Vaccines (1 - 3-dose series) 2019 DTaP/Tdap/Td Vaccines (1 - Tdap) 2023 Hepatitis B Vaccines (1 of 3 - 19+ 3-dose series) 2023 Influenza Vaccine 06/07/2024 COVID-19 Vaccine (1 - 2023-2 5 season) 2024 Pneumococcal Vaccine: Pediat susan (0-5 Years) and At-Risk Patients (6 to 49 Years) Aged Out No longer eligible b ased on patient's age to complete this topic Care Teams Sewer Line Photo Inspector Relationship Specialty Start Date End Date Eunice Gavin MD [address] [place] [address] PCP - General 08/20/24
--- OUTSIDE RECORDS SUMMARY | 2024-12-03 15:35 | XMS_ITS | Clinical Summary ---
Author Organization [facility] Address [address] [place] [address] Care Team Providers Care Cnc Wood Lathe Operator Name Role Phone Eunice Gavin MD Primary Care Provider [phone] Source Comments Please note that some or [...] so, obtain the minor's consent prior to disclosure.[facility] Allergies Active Allergy Reactions Criticality Noted Date [...] Active Active Problems No known active problems Encounters Date Type Department Care Team Description 09/07/2024 1:00 PM EDT Office Visit [facility] Ear, Nose & Throat (Otolaryngology)[address] [phone] Salvador Ramos APRN Tonsil stone (Primary Dx); Sore throat from Last 3 Months Family History Medical History Relation Name Comments Bleeding disorder Mother Cancer Mother Anesthesia problems Neg Hx Relation Name Status Comments Mother Social History Tobacco Use Types Packs/Day Years [...] Description 01/07/2025 9:00 AM EST Office Visit [facility] (Otolaryngology), [address] [phone] Salvador Ramos, HEALTH CARE AIDE [address] [place] [id number] Health Maintenance Due Date Last Done Comments DTaP/TDAP/TD VACCINES (1 - Tdap) 2011 ADOLESCENT HIV SCREENING 2017 COVID-19 Vaccine ( - 2023-2 5 season) 2024 INFLUENZA (#1) 2024 NIRSEVIMAB VACCINES UNDER 8 MONTHS Aged Out No longer eligible based on patient's age to complete this topic Insurance * Guarantor: ELBA QURESHI Account Type Relation to Patient Date of Phone Billing Address Personal/Family Mother [address] [place] [id number] CHO[employer] [facility] Care Teams Cnc Wood Lathe Operator Relationship Specialty Start Date End Date Eunice Gavin MD [address] [place] [address] [place] [address] PCP - General General Pediatrics 04/26/24
--- OUTSIDE RECORDS SUMMARY | 2024-12-03 15:35 | XMS_ITS | Clinical Summary ---
Author Organization [address] Address [address] [place] [address] Care Team Providers Care Buckle Assembler Name Role Phone No, Pcp (Do Not Change Name) Primary Care Provid er Unavailable Allergies Active Allergy Reactions Criticality Noted Date Comments Bee Pollen Throat Closes 09/07/2024 Bee Venom Protein (Honey Bee) Throat Closes 08/2025 Pollen Extracts Congestion 11/16/2024 Medications sertraline (ZOLOFT) 25 mg tablet Take 1 tablet (25 mg total) by mouth daily. 4 Active ibuprofen (ADVIL,MOTRIN) 600 mg tabletIndication s:Acute upper respiratory infection due to respiratory syncytial virus (RSV) Take 1 tablet (600 mg total) by mouth every 8 (eight) hours as needed for pain for up to 5 days. 15 tablet 5 11/21/19 25 benzonatate (TESSALON) 200 mg capsuleIndicatio ns:Acute upper respiratory infection due to respiratory syncytial virus (RSV) Take 1 capsule (200 mg total) by mouth 3 (three) times daily as needed for cough for up to 5 days. 15 capsule 5 11/21/19 25 Active Problems Problem Noted Date Diagnosed Date Acute cough 11/16/2024 Acute upper respiratory infe ction due to respiratory syncytial virus (RSV) 11/16/2024 Encounters Date Type Department Care Team Description 11/16/2024 7:45 PM EST Office Visit [facility] [address] [place] [address] Kayden Torres, ROSHAN Acute cough (Primary Dx); Acute upper respiratory infection due to respiratory syncytial virus (RSV) from Last 3 Months Family History Relation Name Status Comments Father Alive Mother Alive Social History Tobacco Use Types Packs/Day Years Used Date Smoking Tobacco: Never Smokeless Tobacco: Never Tobacco Cessation:Counseling Given: Not Answered Alcohol Use Standard Drinks/Week Comments Yes 0 (1 standard drink = 0.6 oz pur e alcohol) seldom Comments Unknown Sex and Gender Information Value Date Recorded Sex Assigned at Not on file Legal Sex Female 6:38 PM EST Gender Identity Not on file Sexual Orientation Not on file Last Filed Vital Signs Vital Sign Reading Time Taken Comments Blood Pressure 101/69 11/16/2024 7:05 PM EST Pulse 82 11/16/2024 7:05 PM EST Temperature 36.7 ??C (98.1 ??F) 11/16/2024 7:05 PM ES T Respiratory Rate 16 11/16/2024 7:05 PM EST Oxygen Saturation 98% 11/16/2024 7:05 PM EST Inhaled Oxygen Concentration - - Weight 61.2 kg (135 lb) 11/16/2024 7:05 PM EST Height 162.6 cm (5' 4 ) 11/16/2024 7:05 PM EST Body Mass Index 23.17 11/16/2024 7:05 PM EST Plan of Treatment Health Maintenance Due Date Last Done Comments HIV screening 2017 Chlamydia screening 2021 Hepatitis C screening 2022 Influenza Vaccine Pediatric (#1) 2024 09/23/2021, 08/22/2018, 10/20/2017, Additional history exists Covid-19 vaccine series ( season) 2024 DTaP/TDaP Vaccines (7 - Td or Tdap) 08/28/2025 08/28/2015, 09/22/2009, 08/18/2006, Additional history exists Tetanus adult (Td q 10,TDAP once) 08/28/2025 08/28/2015, 09/22/2009, 11/25/2005 RSV Discussion (1 - 1-dose 75+ series) 2079 HIB Vaccines Completed 11/25/2005, 05/2005, 2004, Additional history exists Hepatitis B vaccine series Completed 08/18, 2004, 2004, Additional history exists IPV Vaccines Completed 09/12/2008, 08/07, 03/13/2005, Additional history exists Varicella Vaccines Completed 09/12/2008, 08/24/2005 MMR Vaccines Completed 09/22/2009, 08/24/2005 Meningococcal Vaccine Aged Out 08/28/2015 No nevaeh randi eligible based on patient's age to complete this topic HPV vaccine series Completed 08/22/2018, 10/20/2017 Hepatitis A Vaccines Aged Out No long er eligible based on patient's age to complete this topic Pneumococcal Vaccine Aged Out No long er eligible based on patient's age to complete this topic Rotavirus Vaccines Aged Out No longer eligible based on patient's age to complete this topic Procedures Procedure Name Priority Date/Time Associated Diagnosis Comments POCT INFLUENZA A+B/RSV ([facility]) Routine 11/16/2024 7:32 PM EST Acute cough from Last 3 Months Results * (ABNORMAL) POCT Influenza A+B/RSV (In-Clinic) (11/16/2024 7:32 PM EST) POC Influenza A Not Detected Not Detected POC Influenza B Not Detected Not Detected POC RSV Detected(A) Not Detected POC Kit Lot Number [id number] POC Expiration Date 09/06/2025 Nasal Swab 11/16/2024 7:32 PM EST Kayden ISLAS POINT OF CARE ORDERS W/FUTURE F inal Result from Last 3 Months Insurance [place] Member Subscriber Plan / Payer (Ef fective 2024-Present) Name:Emily Bishop Relation to Subscriber:Self Name:Emily Bishop Payer ID:[id number] Group ID:Not on file Type:Not on file [address] [place] file [place] Member Subscriber Plan / Payer (Ef fective 2024-Present) Name:Emily Bishop Relation to Subscriber:Self Name:Emily Bishop Payer ID:[id number] Group ID:Not on file Type:Not on file Address[address] Care Teams Buckle Assembler Relationship Specialty Start Date End Date No, Pcp (Do Not Change Name) PCP - General 11/16/24
--- OUTSIDE RECORDS SUMMARY | 2024-12-03 15:36 | XMS_ITS | Clinical Summary ---
Author Organization [facility] ity Address [address] [place] [address] Care Team Providers Care Electronic Pagination System Operator Name Role Phone Unavailable Primary Care Provider Unavailabl e Social History Tobacco Use Types Packs/Day Years Used Date Smoking Tobacco: Never Assessed Sex and Gender Information Value Date Recorded Sex Assigned at Not on file Gender Identity Not on file Sexual Orientation Not on file Plan of Treatment Health Maintenance Due Date Last Done Comments Gonorrhea/Chlamydia Screening 2004 Varicella Vaccines (1 of 2 - 13+ 2-dose series) 2017 HPV Vaccines (1 - 3-dose series) 2019 DTaP,Tdap,and Td Vaccines (1 - Tdap) 2023 Hepatitis B Vaccines (1 of 3 - 19+ 3-dose series) 2023 COVID-19 Vaccine ( - 2023-2 5 season) 2024 Influenza Vaccine (#1) 2024 HIB Vaccines Aged Out No longer eligi ble based on patient's age to complete this topic Hepatitis A Vaccines Aged Out No long er eligible based on patient's age to complete this topic IPV Vaccines Aged Out No longer eligi ble based on patient's age to complete this topic MMR Vaccines Aged Out No longer eligi ble based on patient's age to complete this topic Meningococcal ACWY Vaccine Aged Out N o longer eligible based on patient's age to complete this topic Pneumococcal Vaccine: Pediat rics (0 to 5 Years) and At-Risk Patients (6 to 64 Years) Aged Out No longer eligible b ased on patient's age to complete this topic RSV Immunization Patients Un emily 20 months Aged Out No longer eligible b ased on patient's age to complete this topic
--- OUTSIDE RECORDS SUMMARY | 2024-12-03 15:36 | XMS_ITS | Encounter Summary ---
Author Organization [facility] Address [address] [place] [address] Phone Care Team Providers Care Staff Internist Office Based Only Name Role Phone No, Pcp (Do Not Change Name) Primary Care Provid er Unavailable Reason for Visit * Reason Comments Nasal Congestion Pt presents today c/ o nasal congestion and sore throat x's 3 days. Denies fevers. Encounter Details Date Type Department Care Team (Late st Contact Info) Description 11/16/2024 7:45 PM EST Office Visit [facility] [place] [address] [place] [address] Kayden Torres PA [address] [place] [id number] Acute cough (Primary Dx); Acute upper respiratory infection due to respiratory syncytial virus (RSV) Social History Tobacco Use Types Packs/Day Years [...] on file Sexual Orientation Not on file documented as of this encounter Last Filed Vital Signs Vital Sign Reading [...] Mass Index 23.17 11/16/2024 7:05 PM EST documented in this encounter Patient Instructions * Patient Instructions* Kayden Torres PA - 11/16/2024 7:45 PM EST Thank you for choosing [facility] today! Diagnosis: Acute upper respiratory infection due to RSV Rapid RSV is positive. Ibuprofen and cough medicine was sent to your pharmacy take as directed. -Your vital signs were reviewed. -We have discussed your assessment and plan and all questions have been answered. -Discharge information provided. Please review all provided printouts. -Urgent Care is not a substitute for ongoing care with a primary care provider. Please follow up with your primary care provider for continuing symptoms. -If you experience worsening or severe symptoms go to the nearest emergency department immediately for evaluation. Please call with questions, concerns, or if you are not improving. documented in this encounter Progress Notes * Kayden Torres PA - 11/16/2024 7:45 PM EST Subjective Chief Complaint/HPI: Emily Bishop is a 19 y.o. female presents with cough, sore throat nasal congestion for 3 days. 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 She denies any fever chest pain shortness for breath or wheezing. Has not taken any kfay-rqr-whhnlrb medication. The following portions of the patient's history were reviewed and updated as appropriate: allergies, current medications, past family history, past medical history, past social history, past surgicalhistory and problem list. See Epic history tabs. Review of Systems Pertinent items are noted in HPI. Past Medical History: Patient Active Problem List Diagnosis Acute cough Acute upper respiratory infection due to respiratory syncytial virus (RSV) Past Surgical History: Past Surgical History: Procedure Laterality Date NO PAST SURGERIES Medications: Current Outpatient Medications Medication Sig sertraline (ZOLOFT) 25 mg tablet Take 1 tablet (25 mg total) by mouth daily. No current facility-administered medications for this visit. Allergies: Allergies Allergen Reactions Bee Pollen Throat Closes Bee Venom Protein (Honey Bee) Throat Closes Pollen Extracts Congestion Social History: Social History Socioeconomic History Marital status: Single Spouse name: Not on file Number of children: Not on file Years of education: Not on file Highest education level: Not on file Occupational History Not on file Tobacco Use Smoking status: Never Smokeless tobacco: Never Vaping Use Vaping status: Never Used Substance and Sexual Activity Alcohol use: Yes Comment: seldom Drug use: Yes Types: Marijuana Sexual activity: Yes Partners: Male Other Topics Concern Not on file Social History Narrative Not on file Social Drivers of Health Financial Resource Strain: Not on file Food Insecurity: Not on file Transportation Needs: Not on file Physical Activity: Not on file Stress: Not on file Social Connections: Not on file Intimate Partner Violence: Not on file Housing Stability: Not on file Objective BP 101/69 (Site: l a, Position: Sitting, Cuff Size: Large) Pulse 82 Temp 98.1 ??F (36.7 ??C) (Oral) Resp 16 Ht 5' 4 (1.626 m) Wt 61.2 kg LMP 11/10/2024 SpO2 98% BMI 23.17 kg/m?? General: No acute distress, well-developed, well nourished Eye: Normal conjunctiva HENT: Head: Normocephalic, atraumatic, tympanic membrane: bilateral, normal visual inspection, no erythema, no bulging. External ear: bilateral, normal visual inspection, no tenderness, no swelling, no deformities, mastoids nontender to palpation. Nose: Bilateral nares, Positive congestion with clear/white, no bleeding, no discharge, notenderness, no swelling. Sinus: bilateral, negative tenderness to palpation of the frontal/ethmoid/maxillary sinuses, no swelling, no erythema. Mouth: normal visual inspection, oromucosa moist. Throat: Bilateral, normal, oropharynx clear, no exudate, no swelling, no drainage, no palatal petechiae, no uvular shift/swelling, no retropharyngealbulge and no tonsillomegaly. Phonation intact with no muffled voice and patient tolerating secretions Neck: Supple, trachea midline full AROM normal. No meningismus and no nuchal rigidity Respiratory: Respirations are non-labored, Symmetrical chest wall expansion, clear to auscultation bilaterally with no wheezes, no rales, no rhonchi Cardiovascular: Normal peripheral perfusion observed Gastrointestinal: Non-distended Integumentary: Warm, Dry, No rash, No pallor Musculoskeletal: Normal range of motion, No swelling, No deformity Neurologic: Alert and oriented x4, Normal motor, Normal Speech, Normal coordination Psychiatric: Cooperative, Appropriate mood & affect Results for orders placed or performed in visit on 11/16/24 POCT Influenza A+B/RSV (In-Clinic) Result Value Ref Range POC Influenza A Not Detected Not Detected POC Influenza B Not Detected Not Detected POC RSV Detected (A) Not Detected POC Kit Lot Number [id number] POC Expiration Date 09/06/2025 Assessment & Plan 1. Acute cough (Primary) - POCT Influenza A+B/RSV (In-Clinic) 2. Acute upper respiratory infection due to respiratory syncytial virus (RSV) - ibuprofen (ADVIL,MOTRIN) 600 mg tablet; Take 1 tablet (600 mg total) by mouth every 8 (eight) hours as needed for pain for up to 5 days. Dispense: 15 tablet; Refill: 0 - benzonatate (TESSALON) 200 mg capsule; Take 1 capsule (200 mg total) by mouth 3 (three) times daily as needed for cough for up to 5 days. Dispense: 15 capsule; Refill: 0 MDM: Patient is afebrile nontoxic. Rapid RSV is positive. Exam consistent with viral URI secondary to RSV infection. Lungs are clear. Recommended supportive care. Prescribed benzonatate and ibuprofenfor symptomatic relief. Work note provided. Discharge Instructions: Thank you for choosing [facility] today! Diagnosis: Acute upper respiratory infection due to RSV Rapid RSV is positive. Ibuprofen and cough medicine was sent to your pharmacy take as directed. -Your vital signs were reviewed. -We have discussed your assessment and plan and all questions have been answered. -Discharge information provided. Please review all provided printouts. -Urgent Care is not a substitute for ongoing care with a primary care provider. Please follow up with your primary care provider for continuing symptoms. -If you experience worsening or severe symptoms go to the nearest emergency department immediately for evaluation. Please call with questions, concerns, or if you are not improving. documented in this encounter Plan of Treatment Not on file documented as of this encounter Procedures Procedure Name Priority Date/Time Associated Diagnosis Comments POCT INFLUENZA A+B/RSV ([facility]) Routine 11/16/2024 7:32 PM EST Acute cough documented in this encounter Results * (ABNORMAL) POCT Influenza A+B/RSV (In-Clinic) (11/16/2024 7:32 PM EST) POC Influenza A Not Detected Not Detected POC Influenza B Not Detected Not Detected POC RSV Detected(A) Not Detected POC Kit Lot Number [id number] POC Expiration Date 09/06/2025 Nasal Swab 11/16/2024 7:32 PM EST Kayden ISLAS POINT OF CARE ORDERS W/FUTURE F inal Result documented in this encounter Visit Diagnoses Diagnosis Acute cough- Primary Acute upper respiratory infection due to respiratory syncytial virus (RSV) documented in this encounter Care Teams Staff Internist Office Based Only Relationship Specialty Start Date End Date No, Pcp (Do Not Change Name) PCP - General 11/16/24 documented as of this encounter
== END 2024-12-03 11:08 | disposition home or self-care (01) ==
PROVIDERS: PCP Pediatrics; Visit Provider Physician Assistant
DX: A08.4 Viral intestinal infection, unspecified (principal); L30.1 Dyshidrosis [pompholyx]

== ENCOUNTER 2025-02-21 09:09 | Outpatient (AMB) | payer OTHER, MEDICAID, SELFPAY ==
--- NOTE | 2025-02-21 09:13 | MHC.OFVISPED ---
Vital Signs 02/21/25 09:15 Height 5 ft 4.61 in Height percentile 75 Weight 143 lb 4 oz Weight percentile 75 BMI 24.1 BMI percentile 75 Temp 97.9 F Temp Source Oral Pulse 81 Pulse Source Pulse Oximeter BP 114/72 Pulse Oximetry (%) 99 Pediatric Intake Visit Reasons: ear pain Ornamental Iron Erector Required: No Accompanied by: Self / Same As Patient Allergies Seasonal Allergies Allergy (Mild, Verified 02/21/25 09:14) sneezing, runny nose bee pollen Allergy (Unknown, Verified 02/21/25 09:14) Unknown mold Allergy (Unknown, Verified 02/21/25 09:14) Unknown Medication List - Last Reconciled 02/21/25 by Sanjuana Gavin PA-C epinephrine (EpiPen) 0.3 mg (0.3 mL) IM Q15M PRN hydrocortisone 2.5% 1 appl topical BID infliximab-dyyb (Inflectra) 400 mg IV Q6W norethindrone-ethin estradiol 0.4-35 mg-mcg (Carlyleva (28)) 1 tab PO DAILY sertraline take 12.5 mg (0.5 tab) by mouth once daily for 1 week then increase to 25 mg (one tab)by mouth once daily triamcinolone acetonide 0.025% 1 appl topical BID Dental Screening Dental Screen Date: 02/08/24 HPI Comments Details: 19-year-old female presents for evaluation of right-sided ear pain and hearing loss x2 days. She reports she has had a sore throat over the past several days. She went to urgent care on Tuesday, 4 days ago and reports she had a rapid strep test done that was negative. She reports that they did start her on antibiotics and sent a culture which was still pending when she called earlier today for results. 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 She reports having multiple illnesses over the winter including RSV, flu and strep throat. She has seen ENT in the past for tonsil stones and has a follow-up appointment in April as she has now had several episodes of strep. She reports she did call the ENT office prior to this visit and was instructed not to use Q-tips in the ear. She reports trying some hydrogen peroxide which did not help. She has had some mild otorrhea. She denies any cough or breathing difficulty. PFSH Medical History Depression Prolonged menstrual cycle Environmental allergies Mild intermittent asthma Surgical History No pertinent past surgical history Family History Mother Depression Father No problems noted. Sister Depression ADHD Maternal Grandmother Depression Maternal Aunt Bipolar disorder Alcohol abuse Social History Household Members: Family Household Members Other:: lives with mother. sees dad. Both parents involved: Yes Alcohol intake: current Alcohol intake frequency: other (occasional) Substance Use Type: Marijuana Cognitive needs: No Hearing needs: No Vision needs: No Review of Systems Const All systems reviewed & are unremarkable except as noted in HPI and below Pediatric Exam Const Constitutional General: no acute distress, well developed, alert and awake Nutritional appearance: well nourished [facility] Head: normal to inspection, normocephalic and atraumatic Ears: hearing grossly normal bilaterally, external ears normal, EAC's normal, TM normal on the left and Abnormal EAC present on the right (erythema, mild edema, cerumen impacted against TM, no otorrhea) Nose: Normal external nose present, Normal nares present and Normal nasal mucous membranes and turbinates present Mouth: Normal oral and palatal mucosa present, lip normal, tongue normal, moist mucous membranes, palate normal, No muffled voice and No trismus Throat: posterior oropharynx normal, tonsils normal (2+, symmetric, no exudate or visible debris) and uvula midline Eyes General: appearance normal, both eyes and all related structures Alignment and Position: alignment normal Periorbital: periorbital findings normal Eyelids: eyelids normal Conjunctivae: conjunctivae normal Sclerae: sclerae normal Pupils: Equal, round and reactive pupils present Direct ophthalmoscopy: no photophobia Neck Lymphatic: no lymphadenopathy noted Chest Chest: normal inspection of the chest Resp Effort & Inspection: normal respiratory effort Skin General: no rashes or lesions noted Neuro Cranial nerves: Yes Equal, round and reactive pupils present Assessment & Plan Assessment & Plan (1) Impacted cerumen, right ear: Code(s): H61.21 - Impacted cerumen, right ear (2) Right otitis externa: Code(s): H60.91 - Unspecified otitis externa, right ear Qualifiers: Otitis externa type: diffuse Chronicity: acute Qualified Code(s): H60.311 - Diffuse otitis externa, right ear (3) Acute pharyngitis: Code(s): J02.9 - Acute pharyngitis, unspecified Qualifiers: Pharyngitis/tonsillitis etiology: unspecified etiology Qualified Code(s): J02.9 - Acute pharyngitis, unspecified Plan 19-year-old female presenting with 2 days of right-sided ear pain and hearing loss in the setting of acute pharyngitis treated with antibiotic therapy for presumed strep throat through urgent care, final culture results still pending at the time of this visit. Her exam today shows right otitis externa with cerumen impacted against the tympanic membrane. The left ear exam is normal. Her tonsils are 2+, symmetric without exudate or visible debris. No sign of peritonsillar cellulitis or abscess. I recommended treatment with Ciprodex, 4 drops twice a day for 10 days. Avoid use of any Q-tips in the ear and keep the ear dry. She will call ENT to see if she can follow-up sooner for ear debridement. She may also need treatment for fungal otitis externa if the Ciprodex is not effective. Patient agrees with plan and will follow-up as needed. Medications: New ciprofloxacin-dexamethasone 0.3-0.1 % 4 drps otic (ears) BID 7 days 7.5 mL 0RF Coding Level of Care Code Est Pt Level 3 (39202) Diagnoses Impacted cerumen, right ear H61.21 Acute diffuse otitis externa of right ear H60.311 Otitis externa type: diffuse Chronicity: acute Acute pharyngitis, unspecified etiology J02.9 Pharyngitis/tonsillitis etiology: unspecified etiology
[2025-02-21 09:15] VITALS: BP 114/72; PULSE 81; TEMP 36.6; O2SAT 99; BMI 24.1
--- OUTSIDE RECORDS SUMMARY | 2025-02-21 10:06 | XMS_ITS | Clinical Summary ---
Author Organization [facility] it Address [address] [place] [address] Care Team Providers Care Security Risk Analyst Name Role Phone Unavailable Primary Care Provider Unavailabl e Social History Tobacco Use Types Packs/Day Years Used Date Smoking Tobacco: Never Assessed Comments Unknown Sex and Gender Information Value Date Recorded Sex Assigned at Not on file Legal Sex Female 11:45 PM EST Gender Identity Not on file Sexual Orientation Not on file Plan of Treatment Health Maintenance Due Date Last Done Comments Gonorrhea/Chlamydia Screening 2004 Varicella Vaccines (1 of 2 - 13+ 2-dose series) 2017 HPV Vaccines (1 - 3-dose series) 2019 Meningococcal B Vaccine (1 o f 2 - Standard) 2020 DTaP,Tdap,and Td Vaccines (1 - Tdap) 2023 Hepatitis B Vaccines (1 of 3 - 19+ 3-dose series) 2023 COVID-19 Vaccine ( - 2023-2 5 season) 2024 Influenza Vaccine (Season Ended) 2025 HIB Vaccines Aged Out No longer eligi [...]
--- OUTSIDE RECORDS SUMMARY | 2025-02-21 10:06 | XMS_ITS | Encounter Summary ---
Author Organization [facility] Address [address] [place] [address] Care Team Providers Care Director Of Teacher Education Name Role Phone Eunice Gavin MD Primary Care Provider [phone] Encounter Details Date Type Department Care Team (Late st Contact Info) Description 02/20/2025 Telephone [facility] (Otolaryngology), [address] [address] Addie Lockett RN [address] [place], [place] [phone] Social History Tobacco Use Types Packs/Day Years Used Date Smoking Tobacco: Never Smokeless Tobacco: Current Comments:mom Alcohol Use Standard Drinks/Week Comments Not Currently 0 (1 standard drink = 0.6 oz pur e alcohol) Other Needs Answer Date Recorded Anything else about your child you'd like help w [facility]? Not on file 04/26/2024 Share good news about positive changes: Not on f ile 04/26/2024 Comments Unknown Sex and Gender Information Value Date Recorded Sex Assigned at Not on file Legal Sex Female 2:45 PM EDT Gender Identity Not on file Sexual Orientation Not on file documented as of this encounter Miscellaneous Notes * Telephone Encounter - Addie Lockett RN - 02/20/2025 9:45 AM EDT Emily left voice mail stating she has a follow up appointment in April, but recently had 3 cases of strep throat and would like to proceed with tonsillectomy. Her ears also feel clogged Per chart review Last seen in office with Salvador Ramos 09/07/2024 Ears: Auricle and external canal normal, mastoid non-tender. Tympanic membranes intact bilaterally, no evidence of middle ear effusion. Tonsillolith: Saline Gargles and Oral Hygiene: Continue regular saltwater gargling, as this can help to reduce inflammation and flush out debris from the tonsil crypts. Use of a Water Fan Mail Clerk. Tonsillectomy: For patients with frequent, symptomatic tonsil stones that do not respond to conservative treatments, a tonsillectomy may be considered. Follow up appointment 04/11/2025 with Salvador Ramos 02/18/2025 Urgent care visit Diagnosis: Sore throat Rapid strep is negative throat culture pending Take Augmentin twice daily for 10 days Stop the antibiotics if the throat culture is negative. 01/13/2025 Urgent care visit POC Strep A Detected (A) TC to Emily who explains that she has had frequent episodes of strep recently and now has a completed clogged ear. Strep throat: Emily explains since November she has been having back to back illness from flu/RSV/Covid and repetitive strep. She first had strep back in January (per chart review 01/13/25) at this timeshe was prescribed penicillin. After 10 days of use she went to [facility] for vomiting where she was diagnosed with strep again. She was sent home with amoxicillin. A couple days ago (02/18/25) she had white spots on her throat again and went to urgent care. Rapid strep was negative but the culture is still pending, she is currently on Augmentin. Her tonsil stones are still present, she has not noticed much improvement since doing the recommendations as advised from the previous appointment in office. She has not noticed any new onset snoring symptoms, but has had difficulty sleeping. Ears: Emily woke up this morning with the feeling that her right ear is clogged. She attributed this to ear wax and has been using Q-tips to try to remove it as well as hydrogen peroxide. After using hydrogen peroxide she did notice some yellowish drainage from her ear. She does have ear pain when swallowing. 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 She has had this pain/feeling before, and when she would yawn it would go away. There is no pain with external palpation of her ear. It does hurt when she pulls on the bottom of her earlobe. She has a archery equipment hay sorter appointment tomorrow to talk about her ear symptoms as well as maybe take a culture of her ear, she believes. Spoke with Emily about how these symptoms also can be caused from middle ear fluid. With her back to back viral illnesses this would make sense as drainage and congestion from our nose can get trapped in the middle ear space causing the sensation of fullness and difficulty hearing. It can sometimes just take time for this fluid to drain back into our nose area from our middle ear space. It is good that she has a follow up with her archery equipment hay sorter to assess her ears and the symptoms she has. Since she has had what she thinks can be drainage from her right ear, recommended to hold off on using anything in the ear such as hydrogen peroxide until the archery equipment hay sorter takes a look inthe ear. I will forward her concerns to Irsa and call back if there are any recommendations going forward. Emily verbalized understanding and agreed to plan. Encouraged to call back with any further questions or concerns. documented in this encounter Plan of Treatment Upcoming Encounters Date Type Department Care Team (Late st Contact Info) Description 04/11/2025 9:00 AM EDT Office Visit [facility] (Otolaryngology), [address] [address] Salvador Ramos, HOSPITALITY SERVICES MANAGER [address] [place] [id number] documented as of this encounter Visit Diagnoses Not on filedocumented in this encounter Care Teams Director Of Teacher Education Relationship Specialty Start Date End Date Eunice Gavin MD [address] [place] [address] [place] [address] PCP - General General Pediatrics 04/26/24 documented as of this encounter
--- OUTSIDE RECORDS SUMMARY | 2025-02-21 10:06 | XMS_ITS | Encounter Summary ---
Author Organization [facility] Address [address] [place] [address] Care Team Providers Care Rand Sewer Name Role Phone Eunice Gavin MD Primary Care Provider [phone] Dru Baptiste MD Unavailable Unavailable Encounter Details Date Type Department Care Team (Late Contact Info) Description 01/29/2025 Scanned Document [facility] [address] [place] [address] Nina Anne, PA [address] [place] [address] Social History Tobacco Use Types Packs/Day Years Used Date Smoking Tobacco: Unknown Alcohol Use Standard Drinks/Week Comments Not Currently 0 (1 standard drink = 0.6 oz pur e alcohol) Patient reported Comments Unknown Sex and Gender Information Value Date Recorded Sex Assigned at Female 12/04/2024 8:10 AM EST Legal Sex Female 11:45 AM EDT Gender Identity Female 12/04/2024 8:10 AM EST Sexual Orientation Heterosexual (straight) 12/04 8:10 AM EST documented as of this encounter Plan of Treatment Upcoming Encounters Date Type Department Care Team (Late st Contact Info) Description 03/08/2025 8:30 AM EDT Infusion [facility] [address] [phone] Luan Evangelista MD [address] [place] [address] 04/15/2025 8:30 AM EDT Office Visit [facility] [address] [facility] [address] [place] [phone] Nina Anne PA 113 [facility] [address] [place] [address] 07/01/2025 5:00 PM EDT Consult [facility] Department Of Rheumatology [place] [address] [place] [address] [address] [place] [address] Yenny Rascon MD [address] [facility] [address] [place] [address] documented as of this encounter Visit Diagnoses Not on filedocumented in this encounter Care Teams Rand Sewer Relationship Specialty Start Date End Date Eunice Gavin MD [address] [place] [address] PCP - General 08/20/24 Dru Baptiste MD Needs valid address Pediatric, General 12/05/24 documented as of this encounter
--- OUTSIDE RECORDS SUMMARY | 2025-02-21 10:07 | XMS_ITS | Encounter Summary ---
Author Organization [facility] Address [address] [place] [address] Phone Care Team Providers Care Staff Rn Name Role Phone No, Pcp (Do Not Change Name) Primary Care Provid er Unavailable Reason for Visit * Reason Comments Sore Throat Just started yesterd ay. Seen white spots yesterday but nothing today and has has strep twice was given penicillin and the second time was in ER vomiting blood and was given Amox. This was a span of 2 mo. Encounter Details Date Type Department Care Team (Late st Contact Info) Description 02/18/2025 10:45 AM EDT Office Visit [facility] [place] [address] [place] [address] Kayden Torres PA [address] [place] [phone] Sore throat (Primary Dx) Social History Tobacco Use Types Packs/Day Years Used Date Smoking Tobacco: Never Smokeless Tobacco: Never Alcohol Use Standard Drinks/Week Comments Yes 0 [...] Sign Reading Time Taken Comments Blood Pressure 121/75 02/18/2025 10:57 AM EDT Pulse 63 02/18/2025 10:57 AM EDT Temperature 36.8 ??C (98.2 ??F) 02/18/2025 10:57 AM E DT Respiratory Rate 16 02/18/2025 10:57 AM EDT Oxygen Saturation 100% 02/18/2025 10:57 AM EDT Inhaled Oxygen Concentration - - Weight 63.5 kg (140 lb) 02/18/2025 10:57 AM EDT Height - - Body Mass Index 24.03 11/16/2024 7:05 PM EST documented in this encounter Patient Instructions * Patient Instructions* Kayden Torres PA - 02/18/2025 10:45 AM EDT Images from the original note were not included. Thank you for choosing [facility] today! Diagnosis: Sore throat Rapid strep is negative throat culture pending Take Augmentin twice daily for 10 days Stop the antibiotics if the throat culture is negative.Patient Education Sore Throat Discharge Instructions, Adult About this topic Swelling at the back of your throat is called pharyngitis. Swelling of your throat and tonsils is tonsillopharyngitis. Both are commonly called a sore throat. Your sore throat is likely caused by a virus. Most of the time, a sore throat will go away without antibiotics in a week or two. What care is needed at home? Ask your doctor what you need to do when you go home. Make sure you ask questions if you do not understand what the doctor says. This way you will know what you need to do. To help ease a sore throat you can: Use a sore throat spray. Suck on hard candy or throat lozenges. Gargle with warm saltwater a few times each day. Mix of 1/4 teaspoon (1.25 grams) salt in 8 ounces (240 mL) of warm water. Use a cool mist humidifier to help you breathe easier. You may want to take medicine like acetaminophen, ibuprofen, or naproxen for pain. If you decide to take wgmv-oja-tvnzygg cough or cold medicines, follow the directions on the label carefully. Be sure you do not take more than one medicine that contains acetaminophen. Also, if you have a heart problem or high blood pressure, check with your doctor before you take any of these medicines. Wash your hands often. This will help keep others healthy. What follow-up care is needed? Your doctor may ask you to make visits to the office to check on your progress. Be sure to keep these visits. What drugs may be needed? Take your drugs as ordered by your doctor. Do not skip doses or stop when you feel better. The doctor may order drugs to: Prevent or fight an infection Help with pain Lower fever Help nasal congestion and runny nose Soothe the throat Will physical activity be limited? You may need to rest at home for 1 to 2 days or until you are feeling well. What changes to diet are needed? If your throat feels too sore to eat solid foods you may drink juice, milk, milkshakes, or soups. Talk to your doctor about what diet is proper for your condition. What can be done to prevent this health problem? Wash your hands often. Be sure to wash after you blow your nose or take care of others with a sore throat. Do not share utensils and drinking glasses with someone who has a sore throat. Wash these objects with hot, soapy water. Do not share your foods or drinks with others while you are sick. You might infect them. Throw away used tissues right away and then wash your hands. Get a new toothbrush after signs are gone or you are done with your antibiotics. When do I need to call the doctor? You have trouble breathing. Your neck, tongue, or throat is swelling. You are drooling because you cannot swallow your saliva. You have very bad pain in your throat that keeps you from eating or drinking anything. There are large, painful lumps in your neck. You have blisters in the back of your throat. Teach Back: Helping You Understand The Teach Back Method helps you understand the information we are giving you. After you talk with the staff, tell them in your own words what you learned. This helps to make sure the staff has described each thing clearly. It also helps to explain things that may have been confusing. Before going home, make sure you can do these: I can tell you about my condition. I can tell you what may help ease my pain. I can tell you what I will do if I have trouble breathing or swallowing or have large painful lumpsin my throat. Where can I learn more? Centers for Disease Control and Prevention https://www.cdc.gov/antibiotic-use/community/for-patients/common-illnesses/sore- throat.html [facility] https://www.health.govt.nz/your-health/imrfqpetdd-izc-mbvbdeppmq/asfzsvck-tny-np lnesses/sore-throat NHS Choices https://www.nhs.uk/conditions/sore-throat/ Last Reviewed Date 2021-04-14 Consumer Information Use and Disclaimer This generalized information is a limited summary of diagnosis, treatment, and/or medication information. It is not meant to be comprehensive and should be used as a tool to help the user understand and/or assess potential diagnostic and treatment options. It does NOT include all information about conditions, treatments, medications, side effects, or risks that may apply to a specific patient. Itis not intended to be medical advice or a substitute for the medical advice, diagnosis, or treatment of a health care provider based on the health care provider's examination and assessment of a patient???s specific and unique circumstances. Patients must speak with a health care provider for complete information about their health, medical questions, and treatment options, including any risks orbenefits regarding use of medications. This information does not endorse any treatments or medications as safe, effective, or approved for treating a specific patient. [employer] and its affiliates disclaim any warranty or liability relating to this information or the use thereof. The use of this information is governed by the Terms of Use, available at https://www.[employer].com/en/know/hgmmjcsm-pswitojaifmkz-oetwq Copyright Copyright ?? 2022 [employer]. and its affiliates and/or licensors. All rights reserved. -Your vital signs were reviewed. -We have discussed your assessment and plan and all questions have been answered. -Discharge information provided. Please review all provided printouts. -Urgent Care is not a substitute for ongoing care with a primary care provider. Please follow up with your primary care provider for continuing symptoms. If you do not have a primary doctor please contact that connection center at -If you experience worsening or severe symptoms go to the nearest emergency department immediately for evaluation. documented in this encounter Progress Notes * Kayden Torres PA - 02/18/2025 10:45 AM EDT Subjective: Reason for Visit: Sore Throat (Just started yesterday. Seen white spots yesterday but nothing today and has has streptwice was given penicillin and the second time was in ER vomiting blood and was given Amox. This was a span of 2 mo. ) History provided by: self Sore Throat 19-year-old female with asthma, Crohn's disease presents with sore throat and painful swallowing since yesterday. She was diagnosed with strep while back and treated with penicillin with persistent sore throat and vomiting which prompted her to visit the emergency department. She was switched over to amoxicillin and completed her course on February 07. She reports her symptoms completely resolved but returned with sore throat yesterday which feels similar to previous strep infection. She denies any fever difficulty swallowing or neck swelling. History: Allergies Allergen Reactions Bee Pollen Throat Closes Bee Venom Protein (Honey Bee) Throat Closes Pollen Extracts Congestion Moab Diarrhea Past Medical History: Diagnosis Date Asthma Crohn's disease (HC Code) (HC CODE) (HC Code) Past Surgical History: Procedure Laterality Date NO PAST SURGERIES Current Outpatient Medications: clindamycin, APPLY TO FACE EVERY MORNING clobetasoL, Apply topically. fexofenadine, Take 2 tablets (60 mg total) by mouth. fluocinolone, APPLY TO SCALP NIGHTLY AND COVER WITH HAIR CAP ketoconazole, APPLY TO RASH TWICE A DAY UNTILL CLEAR ondansetron, Take 1 tablet (4 mg total) by mouth. pantoprazole, Take 1 tablet (40 mg total) by mouth. Skyrizi, 360mg / 2.4mL subcutaneous injection once every 8 weeks via OBI (on- body injector). triamcinolone, 2 (two) times daily. to affected area amoxicillin-clavulanate, Take 1 tablet by mouth every 12 (twelve) hours for 10 days. Objective: BP 121/75 (Site: r a, Position: Sitting, Cuff Size: Medium) Pulse 63 Temp 98.2 ??F (36.8 ??C) (Oral) Resp 16 Wt 63.5 kg SpO2 100% BMI 24.03 kg/m?? Physical Exam General: No acute distress, well-developed, well nourished. Eye: Normal conjunctiva. HENT: Head: Normocephalic atraumatic. Tympanic membrane: bilateral, normal visual inspection, no erythema, no bulging. External ear: bilateral, normal visual inspection, no tenderness, no swelling, no deformities, mastoids nontender to palpation. Nose: Bilateral nares, no congestion, no bleeding, no discharge, no tenderness, no swelling. Sinus: bilateral, normal, no tenderness to palpation of thefrontal/ethmoid/maxillary sinuses, no swelling, no erythema. Mouth: normal visual inspection, oromucosa moist. Oropharynx: Erythematous, negative for tonsillar exudate, + small left tonsil stone, No submandibular, submental, or sublingual tenderness to palpation, with no elevation of the mouth floor, tongue non-swollen, uvula midline, no retropharyngeal bulge, phonation intact, no trismus, tolerating secretions. Face symmetric with no visible facial swelling, no redness, or evidence to suggest facial softtissue infection. positive Bilateral anterior cervical adenopathy Neck: Supple, trachea midline AROM normal. No meningismus Respiratory: Respirations are non-labored, Symmetrical chest wall expansion, clear to auscultation bilaterally with no wheezes, no rales, no rhonchi Cardiology- Regular Rhythm Results Results for orders placed or performed in visit on 02/18/25 POCT Strep A(In-Clinic) Result Value Ref Range POC Strep A Not Detected Not Detected POC Kit Lot Number [id number] POC Expiration Date [id number] No orders to display Orders Placed This Encounter Procedures Throat culture (Q) POCT Strep A(In-Clinic) Procedures Assessment & Plan: Encounter Diagnoses Code Name Primary? J02.9 Sore throat Yes Requested Prescriptions Signed Prescriptions Disp Refills amoxicillin-clavulanate (AUGMENTIN) 875-125 mg per tablet 20 tablet 0 Sig: Take 1 tablet by mouth every 12 (twelve) hours for 10 days. Medical Decision Making: Patient is afebrile nontoxic. Rapid strep is negative. Symptoms concerningfor possible resistant strep pharyngitis. We will treat with p.o. Augmentin and sent out throat culture for confirmation advised to stop antibiotics if throat culture is negative. No evidence of peritonsillar abscess or deep infection. Patient was noted to have small tonsillar stone which he has had in the past advised supportive care with strict return precautions. Electronically Signed by ROSHAN Brown, February 18, 2025 documented in this encounter Miscellaneous Notes * Result Encounter Note - Tomy Lee PA - 02/18/2025 10:45 AM EDT Throat culture negative no change in therapy indicated documented in this encounter Plan of Treatment Not on file documented as of this encounter Procedures Procedure Name Priority Date/Time Associated Diagnosis Comments THROAT CULTURE (Q) Routine 02/18/2025 12 :12 PM EDT Sore throat POCT STREP A ([facility]) Routine 02/18/2025 11:25 AM EDT Sore throat documented in this encounter Results * Throat culture (Q) (02/18/2025 12:12 PM EDT) Throat Culture SEE NOTE [facility] Comment: ??CULTURE, THROAT ?Micro Number: ?[id number] ??Test Status: ? Final ??Specimen Source: ?? Throat ??Specimen Quality: ??Adequate ??Result: ?No oropharyngeal pathogens recovered. Throat SPECIMEN FROM THROAT / Unknown 02/18/2025 12:12 PM EDT 02/19/2025 3:40 PM EDT Narrative Resulting Agency Comment Performing Lab: ?Site ID: [id number] ?Name: [facility] ?Address: [address] [place] [id number] ?Director: Nikia Ziegler M.D. us Kayden ISLAS MICROBIOLOGY - GENERAL ORDERABL ES Final Result [facility] [address] * POCT Strep A(In-Clinic) (02/18/2025 11:25 AM EDT) POC Strep A Not Detected Not Detected POC Kit Lot Number [id number] POC Expiration Date [id number] Throat 02/18/2025 11:2 5 AM EDT Kayden ISLAS POINT OF CARE ORDERS W/FUTURE F inal Result documented in this encounter Visit Diagnoses Diagnosis Sore throat- Primary Acute pharyngitis documented in this encounter Care Teams Staff Rn Relationship Specialty Start Date End Date No, Pcp (Do Not Change Name) PCP - General 11/16/24 documented as of this encounter
--- OUTSIDE RECORDS SUMMARY | 2025-02-21 10:07 | XMS_ITS | Encounter Summary ---
Author Organization [facility] Address [address] [place] [address] Phone Care Team Providers Care Test Cell Technician Name Role Phone No, Pcp (Do Not Change Name) Primary Care Provid er Unavailable Reason for Visit * Reason Onset Date Comments Results 02/20/2025 Encounter Details Date Type Department Care Team (Late st Contact Info) Description 02/20/2025 Telephone [facility] [place] [address] [place] [address] Kayden Torres PA [address] [place] [phone] Results Social History Tobacco Use Types Packs/Day Years [...] encounter Miscellaneous Notes * Telephone Encounter - Tigist Barrios - 02/20/2025 6:50 PM EDT Strep test results documented in this encounter Plan of Treatment Not on file documented as of this encounter Visit Diagnoses Not on filedocumented in this encounter Care Teams Test Cell Technician Relationship Specialty Start Date End Date No, Pcp (Do Not Change Name) PCP - General 11/16/24 documented as of this encounter
--- OUTSIDE RECORDS SUMMARY | 2025-02-21 10:07 | XMS_ITS | Clinical Summary ---
Author Organization [facility] Address [address] [place] [address] Care Team Providers Care Check Out Clerk Name Role Phone Eunice Gavin MD Primary Care Provider [phone] Dru Baptiste MD Unavailable Unavailable Allergies Active Allergy Reactions Criticality Noted Date Comments Cheyney Diarrhea Low 02/08/2025 Medications ondansetron (ZOFRAN) 4 MG tablet Take 1 tablet (4 mg total) by mouth. 06/25/20 24 Active fexofenadine (ANISH ODT) 30 MG disintegrating tablet Take 2 tablets (60 mg total) by mouth 2 (two) times a day. Active PANTOprazole (PROTONIX) 40 MG EC tablet Take 1 tablet (40 mg total) by mouth every morning before breakfast. Active clobetasol (TEMOVATE) 0.05 % cream Apply topically. 12/10/19 25 Active risankizumab-rzaa (Skyrizi) 360 mg/2.4 mL injectionIndicatio ns:Crohn's disease of both small and large intestine without complication (HCC) 360mg / 2.4mL subcutaneous injection once every 8 weeks via OBI (on-body injector). 1 each 5 01/22/20 25 Active Active Problems Problem Noted Date Diagnosed Date Crohn's disease of colon with complication 01/17 Crohn's disease of both smal l and large intestine without complication 12/29/2024 Assessment & Plan (01/17/2025 1:10 PM EDT): Patient with a hx of crohns disease. Diagnosed in 2020. Most recent colonoscopy per patient in 07/2024 - no records for review. Mother tells me intestines looked as bad as the skin Currently receiving Inflectra 600 mg every 6 weeks. Will discontinue inflectra given worsening psoriais on hand, now on feet and scalp. Worsening joint pains as well. Will start skirizi will get MR-E for restaging Will randi updated CBC, CRP, SED rate and calprotectin as well as Infliximab level and antibodies. Plans for rheumatology visit next month May need to consider repeating colonoscopy pending clinical course Asked pt to get labs that were ordered at last visit done in order to start new med Encounters Date Type Department Care Team Description 02/08/2025 8:45 AM EDT Infusion [facility] [address] [phone] Luan Evangelista MD Curley, Mikaila E, RN Crohn's disease of both small and large intestine without complication (HCC) (Primary Dx) 02/08/2025 Travel 01/29/[address] [phone] Nina Anne PA 01/29/2025 Scanned [facility] [address] [place] [address] Nina Anne PA 01/23/[address] [phone] Nnia Anne PA 01/21/[address] [phone] Nina Anne PA Prior Authorization (SKYRIZI 360MG/2.4ML) 01/21/2025 Refill [facility] [address] [place] [address] Nina Anne PA Crohn's disease of both small and large intestine without complication (HCC) (Primary Dx) 01/18/2025 Orders Only GASTRO[facility]OLOGY [address] [place] [phone] Nina Anne PA 01/18/2025 Orders Only [address] [phone] Nina Anne PA 01/17/2025 11:00 AM EDT Office Visit [address] [place] [phone] Nina Anne, PA Crohn's disease of colon with complication (HCC) (Primary Dx); Crohn's disease of both small and large intestine without complication (HCC) 01/17/2025 Telephone [facility], [address] [place] [address] Nina Anne PA 01/09/2025 Orders Only [address] [phone] Maritza Rashid, DELICATESSEN SLICER 01/09/[address] [phone] Maritza Rashid, DELICATESSEN SLICER 01/08/2025 Orders Only [address] [phone] Maritza Rashid, DELICATESSEN SLICER 01/02/2025 Orders Only [address] [phone] Maritza Rashid, DELICATESSEN SLICER 12/29/[address] [phone] Maritza Rashid, DELICATESSEN SLICER Gastroesophageal reflux disease, unspecified whether esophagitis present 12/26/2024 Telephone [place] [phone] [phone] Maritza Rashid, DELICATESSEN SLICER 12/25/[address] [phone] Maritza Rashid, DELICATESSEN SLICER 12/05/[address] [phone] Maritza Rashid APRN 12/05/2024 Orders Only [address] [phone] Maritza Rashid APRN Crohn's disease of colon without complication (HCC) (Primary Dx) 12/05/[address] [phone] Maritza Rashid APRN 12/04/2024 2:30 PM EST Consult [address] [phone] Maritza Rashid APRN Crohn's disease of colon without complication (HCC) (Primary Dx); Gastroesophageal reflux disease, unspecified whether esophagitis present; Epigastric abdominal tenderness without rebound tenderness; Joint pain in both hands from Last 3 Months Family History Medical History Relation Name Comments Colon cancer Maternal Grandfather Cancer, other Mother Relation Name Status Comments Father Alive Maternal Grandfather Mother Alive Social History Tobacco Use Types Packs/Day Years Used Date Smoking Tobacco: Unknown Tobacco Cessation:Counseling Given: Not Answered Alcohol Use Standard Drinks/Week Comments Not Currently 0 (1 standard drink = 0.6 oz pur e alcohol) Patient reported Comments Unknown Sex and Gender Information Value Date Recorded Sex Assigned at Female 12/04/2024 8:10 AM EST Legal Sex Female 11:45 AM EDT Gender Identity Female 12/04/2024 8:10 AM EST Sexual Orientation Heterosexual (straight) 12/04 8:10 AM EST Last Filed Vital Signs Vital Sign Reading Time Taken Comments Blood Pressure 112/67 02/08/2025 8:49 AM EDT Pulse 81 02/08/2025 8:49 AM EDT Temperature 35.9 ??C (96.7 ??F) 02/08/2025 8:49 AM ED T Respiratory Rate 16 02/08/2025 8:49 AM EDT Oxygen Saturation 100% 02/08/2025 8:49 AM EDT Inhaled Oxygen Concentration - - Weight 64.3 kg (141 lb 12.8 oz) 02/08/2025 8:49 AM EDT Height 162.6 cm (5' 4 ) 02/11/2025 1:04 PM EDT Body Mass Index 24.33 02/08/2025 8:49 AM EDT Plan of Treatment Upcoming Encounters Date Type Department Care Team (Late st Contact Info) Description 03/08/2025 8:30 AM EDT Infusion [facility] [address] [phone] Luan Evangelista MD [address] [place] [address] 04/15/2025 8:30 AM EDT Office Visit [facility] [address] [phone] Nina Anne PA 113 [facility] [address] [place], [place] [phone] 07/01/2025 5:00 PM EDT Consult [facility] Department Of Rheumatology [address] [place] [phone] Yenny Rascon MD 160 [facility] [address] [place], [place] [phone] Health Maintenance Due Date Last Done Comments Hepatitis C Virus Screening 2004 COVID-19 Vaccine (#1) 2009 HIV Screening 2017 HPV Vaccines (1 - 3-dose series) 2019 DTaP/Tdap/Td Vaccines (1 - Tdap) 2023 Hepatitis B Vaccines (1 of 3 - 19+ 3-dose series) 2023 Influenza Vaccine 06/07/2024 09/23/2021, , 10/20/2017, Additional history exists Influenza Vaccine Discontinued 09/23/2021, , 10/20/2017, Additional history exists Quantiferon Gold TB Discontinued 01/17/2025 Pneumococcal Vaccine: Pediatric (0-5 Years) and At-Risk Patients (6 to 49 Years) Aged Out No longer eligible based on patient's age to complete this topic Procedures Procedure Name Priority Date/Time Associated Diagnosis Comments CALPROTECTIN, STOOL Routine 01/29/2025 1 2:37 PM EDT Crohn's disease of colon without complication (HCC) HEPATITIS B VIRUS (HBV) CORE ANTIBODY TOTAL Routine 01/17/2025 3:09 PM EDT Crohn's disease of colon without complication (HCC) HEPATITIS B VIRUS SURFACE ANTIBODY, QUANTITATIVE Routine 01/17/2025 3:09 PM EDT Crohn's disease of colon without complication (HCC) HEPATITIS B VIRUS (HBV) SURFACE ANTIGEN SCREEN, REFLEX CONFIRMATION Routine 01/17/2025 3:09 PM EDT Crohn's disease of colon without complication (HCC) QUANTIFERON(R)-TB GOLD PLUS, 1 TUBE Routine 01/17/2025 3:09 PM EDT Crohn's disease of colon without complication (HCC) LIPASE Routine 01/17/2025 3:07 PM EDT Epigastric abdominal tenderness without rebound tenderness INFLIXIMAB LEVEL AND ANTI-DRUG ANTIBODY FOR IBD Routine 01/17/2025 3:07 PM EDT Crohn's disease of colon without complication (HCC) ERYTHROCYTE SEDIMENTATION RATE (ESR) Routine 01/17/2025 3:07 PM EDT Crohn's disease of colon without complication (HCC) COMPREHENSIVE METABOLIC PANEL Routine 01/17/2025 3:07 PM EDT Crohn's disease of colon without complication (HCC) Epigastric abdominal tenderness without rebound tenderness COMPLETE BLOOD COUNT, WITH DIFFERENTIAL Routine 01/17/2025 3:07 PM EDT Crohn's disease of colon without complication (HCC) Epigastric abdominal tenderness without rebound tenderness C-REACTIVE PROTEIN Routine 01/17/2025 3: 07 PM EDT Crohn's disease of colon without complication (HCC) from Last 3 Months Results * Calprotectin, Stool (01/29/2025 12:37 PM EDT) Calprotectin, Stool 50 mcg/g [facility], Comment: ?Reference Range: ?<50 ? Normal ?50-120 ??Borderline ?>120 ?Elevated Calprotectin in Crohn's disease and ulcerative colitis can be five to several thousand times above the reference population (50 mcg/g or less). Levels are usually 50 mcg/g or less in healthy patients and with irritable bowel syndrome. Repeat testing in 4-6 weeks is suggested for borderline values. Stool Stool specimen / Unknown 01/29/2025 12:37 PM EDT 01/29/2025 12:38 PM EDT Narrative [facility] - 02/04/2025 4:09 PM EDT SPLIT 01/17/2025 FROM [id number] us Maritza Rashid APRN LAB AMB FLUID/STOOL ORDERA BLES Final Result [facility], [address] [place] [address] * Quantiferon ?? -TB Gold Plus, 1 Tube (01/17/2025 3:09 PM EDT) [facility] Quantiferon TB Gold Plus, 1T NEGATIVE NEGATIVE Couple Comment: Negative test result. M. tuberculosis complex infection unlikely. Quantiferon NIL 0.02 IU/mL [facility] [employer] Quantiferon Mitogen-NIL >10.00 IU/mL [facility] [employer] Quantiferon TB1-NIL 0.00 IU/mL [facility] [employer] (RIS) Quantiferon TB2-NIL 0.00 IU/mL Couple Comment: The Nil tube value reflects the background interferon gamma immune response of the patient's blood sample. This value has been subtracted from the patient's displayed TB and Mitogen results. Lower than expected results with the Mitogen tube prevent false-negative Quantiferon readings by detecting a patient with a potential immune suppressive condition and/or suboptimal pre-analytical specimen handling. The TB1 Antigen tube is coated with the M. tuberculosis-specific antigens designed to elicit responses from TB antigen primed CD4+ helper T-lymphocytes. The TB2 Antigen tube is coated with the M. tuberculosis-specific antigens designed to elicit responses from TB antigen primed CD4+ helper and CD8+ cytotoxic T-lymphocytes. For additional information, please refer to https://education.[employer]/faq/EVD224 (This link is being provided for informational/ educational purposes only.) Blood Blood specimen / Unknown 01/17/2025 3:09 PM EDT 01/17/2025 3:10 PM EDT Narrative [facility] - 01/20/2025 10:16 PM EDT FASTING:NO FASTING: NO us Maritza Rashid APRN LAB BLOOD ORDERABLES Final Result [facility] [address] [place] [phone] * (ABNORMAL) Hepatitis B Virus Surface Antibody, Quantitative (01/17/2025 3:09 PM EDT) [facility] Hepatitis B Surface Ab (Quant) <5(L) > OR = 10 mIU/mL Couple Comment: PATIENT DOES NOT HAVE IMMUNITY TO HEPATITIS B VIRUS. For additional information, please refer to http://ActivePath.[employer]/faq/TBA436 (This link is being provided for informational/ educational purposes only). Blood Blood specimen / Unknown 01/17/2025 3:09 PM EDT 01/17/2025 3:10 PM EDT Narrative [facility] - 01/20/2025 10:16 PM EDT FASTING:NO FASTING: NO Maritza Zamarripa Gay DELICATESSEN SLICER LAB BLOOD ORDERABLES Final Result Performing Organization Address [facility] de Phone Number [facility] [address] [place] [phone] * HEPATITIS B VIRUS (HBV) SURFACE ANTIGEN SCREEN, REFLEX CONFIRMATION (01/17/2025 3:09 PM EDT) Pathologist [facility] Hepatitis B Surface Ag Screen NON-REACT AMIRA NON-REACT AMIRA Couple Comment: For additional information, please refer to http://[employer]/faq/MTV744 (This link is being provided for informational/ educational purposes only.) Blood Blood specimen / Unknown 01/17/2025 3:09 PM EDT 01/17/2025 3:10 PM EDT Narrative [facility] - 01/20/2025 10:16 PM EDT FASTING:NO FASTING: NO Maritza Zamarripa Gay DELICATESSEN SLICER LAB BLOOD ORDERABLES Final Result Performing Organization Address [facility] Co de Phone Number [facility] [address] [place] [phone] * HEPATITIS B VIRUS (HBV) CORE ANTIBODY TOTAL (01/17/2025 3:09 PM EDT) Hepatitis B Core Antibody Total NON-REACT AMIRA NON-REACT AMIRA Couple Comment: For additional information, please refer to http://[employer]/faq/EIR678 (This link is being provided for informational/ educational purposes only.) Blood Blood specimen / Unknown 01/17/2025 3:09 PM EDT 01/17/2025 3:10 PM EDT Narrative [facility] - 01/20/2025 10:16 PM EDT FASTING:NO FASTING: NO Maritza Zamarripa Gay DELICATESSEN SLICER LAB BLOOD ORDERABLES Final Result [facility] [address] [place] [phone] * (ABNORMAL) Infliximab Level and Anti-Drug Antibody for IBD - [facility] (01/17/2025 3:07 PM EDT) Infliximab Level, IBD 40.2 mcg/mL [facility], Infliximab ADA, IBD 24(H) <10 AU [facility], Interpretation SEE NOTE [facility], Comment: The infliximab and infliximab anti-drug antibody (ADA) assays were initially designed for the detection of the infliximab drug and its ADA. Because infliximab and its biosimilars share the same amino acid sequence and have essentially the same molecular structure, these assays were subsequently validated for the detection of infliximab-dyyb (inflectra) and inflectra ADA with no analytical differences between these two. Based on the results of clinical equivalence studies, the FDA and the [place] [employer] advocate applying infliximab clinical guidance to the use of its biosimilars. The [place] [employer] recommends optimal infliximab trough concentration of 5.0 mcg/mL or greater in patients with active IBD. Data from separate clinical studies suggest an optimal infliximab trough concentration greater than 3.8 mcg/mL or 6.0-10.0 mcg/mL. Subtherapeutic infliximab levels may be due to a patient not yet achieving a steady state trough level early in therapy, inadequate dosing, a dosing interval that is too long, or accelerated infliximab clearance. Accelerated infliximab clearance may be explained by the presence of infliximab anti-drug antibody or rheumatoid factor in the patient's serum, or may be caused by other diseases that indirectly lead to immunoglobulin loss (i.e. kidney disease, protein-losing gastroenteropathy). If infliximab level is subtherapeutic but total infliximab anti-drug antibody is not detected: Patients with a subtherapeutic infliximab trough level, but no anti-drug antibody, may benefit from an increased infliximab dose. If infliximab level is subtherapeutic and total infliximab anti-drug antibody is detected: Detectable serum infliximab anti-drug antibody may cause accelerated infliximab clearance leading to reduced trough levels and a compromised clinical response. Such patients are more likely to benefit from a switch in biologic therapy than from an increase in infliximab dose. If infliximab level is therapeutic and total infliximab anti-drug antibody is not detected: In patients who do not respond or who lose their clinical response, mucosal inflammation is likely to be driven by a process that is not TNF alpha dependent. A switch to a different class of therapy should be considered. If infliximab level is therapeutic and total infliximab anti-drug antibody is detected: If the patient is responding clinically, the detected anti-drug antibody may not be clinically significant because the detected anti-drug antibody may not be functional or the level is inadequate to accelerate infliximab clearance. Anti-drug antibody may disappear over time or increase, and, if increased, may cause subtherapeutic infliximab levels and a loss of response in the future. Patients with a loss of infliximab response despite therapeutic trough levels may benefit from a switch to a different class of therapy. These tests were performed using the STACI method. Infliximab levels obtained with different assay methods cannot be used interchangeably. Interfering substances found in sera of patients receiving infliximab therapy have different influence on infliximab levels measured on various assay platforms. This information is provided for informational purposes only and is not intended as medical advice. A physician's test selection and interpretation, diagnosis, and patient management decisions should be based on his/her education, clinical expertise, and assessment of the patient. The treating healthcare professional should refer to the assigner's approved labeling for prescribing, warnings, side effects and other important information. Comment SEE NOTE [facility], Comment: This test was developed and its analytical performance characteristics have been determined by [facility] [place]. It has not been cleared or approved by FDA. This assay has been validated pursuant to the CLIA regulations and is used for clinical purposes. For additional information, please refer to https://education.Modanisa.[employer]/faq/KQS977 (This link is being provided for informational/educational purposes only.) 01/17/2025 3:07 PM EDT 01/17/2025 3:07 PM EDT Narrative [facility] - 01/23/2025 6:15 PM EDT FASTING:NO COLLECTION KIT GIVEN TO PATIENT. PATIENT ADVISED TO RETURN. FASTING: NO Maritza Rashid APRN LAB BLOOD ORDERABLES Final Result [facility], [address] [place] [address] * Complete Blood Count, with Differential (01/17/2025 3:07 PM EDT) Pathologist [facility] White Blood Cell Count 6.6 3.8 - 10.8 Thousand/u L Couple Red Blood Cell Count 4.04 3.80 - 5.10 Million/uL [facility] [employer] Hemoglobin 12.9 11.7 - 15.5 g/dL [facility] [employer] [facility] [employer] Hematocrit 38.9 35.0 - 45.0 % [facility] MCV 96.3 80.0 - 100.0 fL [facility] MCH 31.9 27.0 - 33.0 pg [facility] [employer] MCHC 33.2 32.0 - 36.0 g/dL [facility] [employer] Comment: For adults, a slight decrease in the calculated MCHC value (in the range of 30 to 32 g/dL) is most likely not clinically significant; however, it should be interpreted with caution in correlation with other red cell parameters and the patient's clinical condition. RDW 11.3 11.0 - 15.0 % [facility] [employer] [facility] [employer] Platelet Count 390 140 - 400 Thousand/u L [facility] MPV 9.6 7.5 - 12.5 fL [facility] Abs Neutrophils Auto 3,069 1,500 - 7,800 cells/uL [facility] [employer] Abs Lymphocytes Auto 2,765 850 - 3,900 cells/uL [facility] Abs Monocytes Auto 422 200 - 950 cells/uL [facility] Abs Eosinophils Auto 290 15 - 500 cells/uL [facility] Abs Basophils Auto 53 0 - 200 cells/uL [facility] Neutrophils Auto 46.5 % [facility] Lymphocytes Auto 41.9 % [facility] Monocytes Auto 6.4 % [facility] Eosinophils Auto 4.4 % [facility] Basophils Auto 0.8 % [facility] Blood Blood specimen / Unknown 01/17/2025 3:07 PM EDT 01/17/2025 3:07 PM EDT Narrative [facility] - 01/23/2025 6:15 PM EDT FASTING:NO COLLECTION KIT GIVEN TO PATIENT. PATIENT ADVISED TO RETURN. FASTING: NO Maritza Rashid APRN LAB BLOOD ORDERABLES Final Result Performing Organization Address [facility] Co de Phone Number [facility] [address] [place] [phone] * (ABNORMAL) Erythrocyte Sedimentation Rate (ESR) (01/17/2025 3:07 PM EDT) Pathologist [facility] Erythrocyte Sediment Rate (ESR) 36(H) < OR = 20 mm/h Couple Blood Blood specimen / Unknown 01/17/2025 3:07 PM EDT 01/17/2025 3:07 PM EDT [facility] - 01/23/2025 6:15 PM EDT FASTING:NO COLLECTION KIT GIVEN TO PATIENT. PATIENT ADVISED TO RETURN. FASTING: NO Maritza Rashid APRN LAB BLOOD ORDERABLES Final Result Performing Organization Address [facility] Co de Phone Number [facility] [address] [place] [phone] * C-REACTIVE PROTEIN (01/17/2025 3:07 PM EDT) Pathologist [facility] C-Reactive Protein <3.0 <8.0 mg/L Couple Blood Blood specimen / Unknown 01/17/2025 3:07 PM EDT 01/17/2025 3:07 PM EDT Narrative [facility] - 01/23/2025 6:15 PM EDT FASTING:NO COLLECTION KIT GIVEN TO PATIENT. PATIENT ADVISED TO RETURN. FASTING: NO Maritza Zamarripa Gay DELICATESSEN SLICER LAB BLOOD ORDERABLES Final Result Performing Organization Address [facility] Co de Phone Number [facility] [address] [place] [phone] * Lipase (01/17/2025 3:07 PM EDT) Lipase 26 7 - 60 U/L Couple Blood Blood specimen / Unknown 01/17/2025 3:07 PM EDT 01/17/2025 3:07 PM EDT Narrative [facility]elation - 01/23/2025 6:15 PM EDT FASTING:NO COLLECTION KIT GIVEN TO PATIENT. PATIENT ADVISED TO RETURN. FASTING: NO Maritza Rashid DELICATESSEN SLICER LAB BLOOD ORDERABLES Final Result Performing Organization Address [facility] Co de Phone Number [facility] [address] [place] [phone] * Comprehensive Metabolic Panel (01/17/2025 3:07 PM EDT) Glucose 90 65 - 139 mg/dL Couple Comment: ? Non-fasting reference interval Blood Urea Nitrogen (BUN) 15 7 - 25 mg/dL Couple Creatinine 0.73 0.50 - 0.96 mg/dL Couple Creatinine w/ eGFR 121 > OR = 60 mL/min/1. 73m2 Couple BUN/Creatinine Ratio SEE NOTE: (calc) Couple Comment: ?? Not Reported: BUN and Creatinine are within ?? reference range. ? Sodium 137 135 - 146 mmol/L Couple Potassium 3.9 3.5 - 5.3 mmol/L Couple Chloride 101 98 - 110 mmol/L Couple CO2 28 20 - 32 mmol/L Couple Calcium 9.8 8.6 - 10.2 mg/dL Couple Protein, Total 8.0 6.1 - 8.1 g/dL Couple Albumin 4.6 3.6 - 5.1 g/dL Couple Globulin 3.4 1.9 - 3.7 g/dL (calc) Couple Albumin/Globuli n Ratio 1.4 1.0 - 2.5 (calc) Couple Bilirubin, Total 0.4 0.2 - 1.2 mg/dL Couple Alkaline Phosphatase 67 31 - 125 U/L Couple Aspartate Aminotrans (AST) 15 10 - 30 U/L Couple Alanine Aminotrans (ALT) 13 6 - 29 U/L Couple Blood Blood specimen / Unknown 01/17/2025 3:07 PM EDT 01/17/2025 3:07 PM EDT Narrative [facility] - 01/23/2025 6:15 PM EDT FASTING:NO COLLECTION KIT GIVEN TO PATIENT. PATIENT ADVISED TO RETURN. FASTING: NO us Maritza Rashid APRN LAB BLOOD ORDERABLES Final Result [facility] Couple [address] [place] [phone] from Last 3 Months [facility] Care Teams Check Out Clerk Relationship Specialty Start Date End Date Eunice Gavin MD [address] [facility] [place] [id number] PCP - General 08/20/24 Dru Baptiste MD Needs valid address Pediatric, General 12/05/24
--- OUTSIDE RECORDS SUMMARY | 2025-02-21 10:07 | XMS_ITS | Clinical Summary ---
Author Organization [address] Address [address] [place] [phone] Care Team Providers Care Parts Order And Stock Clerk Name Role Phone No, Pcp (Do Not Change Name) Primary Care Provid er Unavailable Allergies Active Allergy Reactions Criticality Noted Date Comments Bee Pollen Throat Closes 09/07/2024 Bee Venom Protein (Honey Bee) Throat Closes 08/2025 [place] Diarrhea Low 02/08/2025 Pollen Extracts Congestion 11/16/2024 Medications ondansetron (ZOFRAN) 4 mg tablet Take 1 tablet (4 mg total) by mouth. 06/25/20 24 Active pantoprazole (PROTONIX) 40 mg tablet Take 1 tablet (40 mg total) by mouth. 09/22/20 23 Active clindamycin (CLEOCIN T) 1 % lotion APPLY TO FACE EVERY MORNING 02/12/20 25 Active clobetasoL (TEMOVATE) 0.05 % cream Apply topically. 12/10/19 25 Active fexofenadine (ANISH ODT) 30 mg disintegrating tablet Take 2 tablets (60 mg total) by mouth. Active fluocinolone (DERMA-SMOOTHE) 0.01 % topical oil APPLY TO SCALP NIGHTLY AND COVER WITH HAIR CAP 02/12/20 25 Active ketoconazole (NIZORAL) 2 % cream APPLY TO RASH TWICE A DAY UNTILL CLEAR 02/12/20 25 Active risankizumab-rzaa (SKYRIZI) 360 mg/2.4 mL (150 mg/mL) On-body Injector 360mg / 2.4mL subcutaneous injection once every 8 weeks via OBI (on-body injector). 01/22/20 25 Active triamcinolone (KENALOG) 0.025 % ointment 2 (two) times daily. to affected area 12/03/19 25 Active amoxicillin-clavu lanate (AUGMENTIN) 875-125 mg per tablet Take 1 tablet by mouth every 12 (twelve) hours for 10 days. 20 tablet 02/19/20 25 025 Active sertraline (ZOLOFT) 25 mg tablet Take 1 tablet (25 mg total) by mouth daily. 08/17/20 025 Discontinu ed(!Delete Cleanup (No Cancel Msg)) inFLIXimab-dyyb (INFLECTRA) 100 mg injection Inject 40 mLs (400 mg total) into the vein. 06/25/20 Discontinu ed(!Delete Cleanup (No Cancel Msg)) penicillin v potassium (VEETID) 500 mg tablet Take 1 tablet (500 mg total) by mouth 2 (two) times daily (0800, 1800) for 10 days. 20 tablet 01/14/20 Active Problems Problem Noted Date Diagnosed Date Sore throat 02/18/2025 Crohn's disease of both small and large intestin e 01/13/2025 Infliximab long-term use 01/13/2025 Asthma 01/13/2025 Streptococcal pharyngitis 01/13/2025 Acute cough 11/16/2024 Acute upper respiratory infe ction due to respiratory syncytial virus (RSV) 11/16/2024 Encounters Date Type Department Care Team Description 02/20/2025 Telephone [facility] [address] [place] [address] Kayden Torres PA Results 02/18/2025 10:45 AM EDT Office Visit [facility] [address] [place], [place] [id number] Kayden Torres PA Sore throat (Primary Dx) 01/13/2025 10:30 AM EDT Office Visit [facility] [address] [place] [address] Kayden Torres PA Sore throat (Primary Dx); Streptococcal pharyngitis from Last 3 Months Immunizations Name Administration Dates Next Due DTaP 09/22/2009,11/25/2005 [id number] 08/18/2006,2004,2004 H1N1 for historical documentation only 9 HPV, quadrivalent 08/22/2018,10/20/2017 Hep A-Hep B 09/27/2014,09/21/2013 Hep B, unspecified formulation 2004 Hib, unspecified formulation 11/25/2005, 03/13/2005,2004,11/17 Influenza, split virus, triv alent, Preservative Free 09/23/2021,08/22/2018 Influenza, trivalent, inject able, contains preservative 10/20/2017,10/12/2016,08/28/2015,09/27,09/21/2013,08/28/2012,09/27/2011 ,08/07/2010,09/12/2008,09/01/2007 Influenza, unspecified formulation 08/18/2006, MMR 09/22/2009,08/24/2005 Meningococcal ACWY, unspecif ied formulation 08/28/2015 Pneumococcal conjugate PCV 7 08/18/2006, 11/25/2005,03/13/2005,12/24,2004 Polio (IPV) 09/12/2008,03/13/2005 Tdap 08/28/2015 Varicella, live 09/12/2008,08/24/2005 Family History Relation Name Status Comments Father [...] (140 lb) 02/18/2025 10:57 AM EDT Height 162.6 cm (5' 4 ) 11/16/2024 7:05 PM EST Body Mass Index 24.03 11/16/2024 7:05 PM EST Plan of Treatment Health Maintenance Due Date Last Done Comments Pneumococcal Vaccine (2 - 49 years) (1 of 1 - PPSV23) 2010 08/18/2006, 11/25/2005, 03/13/2005, Additional history exists HIV screening 2017 Chlamydia screening 2021 Hepatitis C screening 2022 Covid-19 vaccine series ( season) 2024 Influenza Vaccine Pediatric (Season Ended) 2025 09/23/2021, 08/22/2018, 10/20/2017, Additional history exists DTaP/TDaP Vaccines (7 - Td or Tdap) 08/28/2025 08/28/2015, 09/22/2009, 08/18/2006, Additional history exists Tetanus adult (Td q 10,TDAP once) 08/28/2025 08/28/2015, 09/22/2009, 11/25/2005 RSV Immunization (1 - 1-dose 75+ series) 2079 HIB Vaccines Completed 11/25/2005, 05/2005, 2004, Additional history exists IPV Vaccines Completed 09/12/2008, 08/07, 03/13/2005, Additional history exists Varicella Vaccines Completed 09/12/2008, 08/24/2005 MMR Vaccines Completed 09/22/2009, 08/24/2005 Hepatitis A Vaccines Completed 09/27/2014, 09/21/20 13 Hepatitis B vaccine series Completed 09/27, 09/21/2013, 08/18/2006, Additional history exists Meningococcal Vaccine Aged Out 08/28/2015 No nevaeh randi eligible based on patient's age to complete this topic HPV vaccine series Completed 08/22/2018, 10/20/2017 Rotavirus Vaccines Aged Out No longer eligible based on patient's age to complete this topic Procedures Procedure Name Priority Date/Time Associated Diagnosis Comments THROAT CULTURE (Q) Routine 02/18/2025 12 :12 PM EDT Sore throat POCT STREP A ([facility]) Routine 02/18/2025 11:25 AM EDT Sore throat POCT STREP A ([facility]) Routine 01/13/2025 10:58 AM EDT Sore throat from Last 3 Months Results * Throat culture (Q) (02/18/2025 12:12 PM EDT) Throat Culture SEE NOTE [facility] Comment: ??CULTURE, THROAT ?Micro Number: ?[id number] ??Test Status: ? Final ??Specimen Source: ?? Throat ??Specimen Quality: ??Adequate ??Result: ?No oropharyngeal pathogens recovered. Throat SPECIMEN FROM THROAT / Unknown 02/18/2025 12:12 PM EDT 02/19/2025 3:40 PM EDT Narrative Resulting Agency Comment Performing Lab: ?Site ID: [id number] ?Name: [facility] ?Address: [address] [place] [phone] ?Director: Nikia Ziegler M.D. us Kayden ISLAS MICROBIOLOGY - GENERAL ORDERABL ES Final Result [facility] [address] * POCT Strep A(In-Clinic) (02/18/2025 11:25 AM EDT) Only the most recent of2 resultswithin the time period is included. POC Strep A Not Detected Not Detected POC Kit Lot Number [id number] POC Expiration Date [id number] Throat 02/18/2025 11:2 5 AM EDT Kayden ISLAS POINT OF CARE ORDERS W/FUTURE F inal Result from Last 3 Months Insurance [place] Member Subscriber Plan / Payer (Ef fective 2024-Present) Name:Emily Bishop Relation to Subscriber:Self Name:Emily Bishop Payer ID:[id number] Group ID:Not on file Type:Not on file Address: [address] on file [place] Member Subscriber Plan / Payer (Ef fective 2024-Present) Name:Emily Bishop Relation to Subscriber:Self Name:Emily Bishop Payer ID:[id number] Group ID:Not on file Type:Not on file Address: [address] on file Member Subscriber Plan / Payer (Ef fective 2024-Present) Name:DarioFemicathy Relation to Subscriber:Self Name:Emily Bishop Payer ID:[id number] Group ID:Not on file Type:Not on file Address: [address] on file Care Teams Parts Order And Stock Clerk Relationship Specialty Start Date End Date No, Pcp (Do Not Change Name) PCP - General 11/16/24
--- OUTSIDE RECORDS SUMMARY | 2025-02-21 10:07 | XMS_ITS | Clinical Summary ---
Author Organization [facility] Address [address] [place] [id number] Care Team Providers Care Dungeon Master Name Role Phone Eunice Gavin MD Primary Care Provider [phone] Source Comments Please note that some or [...] so, obtain the minor's consent prior to disclosure.[facility] Allergies Active Allergy Reactions Criticality Noted [...] Type Department Care Team Description 02/20/2025 Telephone [facility] (Otolaryngology)[address] [phone] Addie Lockett RN from Last 3 Months Family History Medical [...] Description 04/11/2025 9:00 AM EDT Office Visit [facility] (Otolaryngology), [address] [phone] Salvador Ramos, JEANE [address] [place] [phone] Health Maintenance Due Date Last Done Comments DTaP/TDAP/TD VACCINES (1 - Tdap) 2011 ADOLESCENT HIV SCREENING 2017 COVID-19 Vaccine ( - 2023-2 5 season) 2024 INFLUENZA (#1) 2024 NIRSEVIMAB VACCINES UNDER 8 MONTHS Aged Out No longer eligible based on patient's age to complete this topic Insurance SUZIE Mukherjee Care Teams Dungeon Master Relationship Specialty Start Date End Date Eunice Gavin MD [address] [place] [address] [place] [address] PCP - General General Pediatrics 04/26/24
== END 2025-02-21 09:35 | disposition home or self-care (01) ==
PROVIDERS: PCP Pediatrics; Visit Provider Physician Assistant
DX: H61.21 Impacted cerumen, right ear (principal); H60.311 Diffuse otitis externa, right ear; J02.9 Acute pharyngitis, unspecified

== ENCOUNTER 2025-03-26 10:38 | Outpatient (AMB) | payer OTHER, SELFPAY ==
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
[2025-03-26 10:45] VITALS: BP 114/66; PULSE 85; TEMP 36.9; O2SAT 95; BMI 23.8
--- OUTSIDE RECORDS SUMMARY | 2025-03-26 11:54 | XMS_ITS | Clinical Summary ---
Author Organization [address] Address [address] [place] [phone] Care Team Providers Care Juvenile Justice Officer Name Role Phone No, Pcp (Do Not Change Name) Primary Care Provid er Unavailable Allergies Active Allergy Reactions Criticality Noted Date Comments Bee Pollen Throat Closes 09/07/2024 Bee Venom Protein (Honey Bee) Throat Closes 08/2025 Lulu Diarrhea Low 02/08/2025 Pollen Extracts Congestion 11/16/2024 [...] daily. to affected area 12/03/19 25 Active amoxicillin-clavul anate (AUGMENTIN) 875-125 mg per tablet Take 1 tablet by mouth every 12 (twelve) hours for 10 days. 20 tablet 02/19/20 25 025 Active Problems Problem Noted Date Diagnosed Date Sore throat 02/18/2025 Crohn's disease of both small and large intestin e 01/13/2025 Infliximab long-term use 01/13/2025 Asthma 01/13/2025 Streptococcal pharyngitis 01/13/2025 Acute cough 11/16/2024 Acute upper respiratory infe ction due to respiratory syncytial virus (RSV) 11/16/2024 Encounters Date Type Department Care Team Description 02/20/2025 Telephone [facility] [address] [place] [address] Kayden Torres PA Results 02/18/2025 10:45 AM EDT Office Visit [facility] [address] [place] [address] Kayden Torres PA Sore throat (Primary Dx) 01/13/2025 10:30 AM EDT Office Visit [facility] [address] [facility] [place] [address] Kayden Torres PA Sore throat (Primary Dx); Streptococcal pharyngitis from Last 3 Months Immunizations Name Administration Dates Next Due DTaP 09/22/2009,11/25/2005 [id number] 08/18/2006,2004,2004 H1N1 for historical documentation only 9 [...] Chlamydia screening 2021 Hepatitis C screening 2022 Pneumococcal Vaccine (2 - 49 years) (1 of 2 - PCV) 2023 08/18/2006, 11/25/2005, 03/13/2005, Additional history exists Covid-19 vaccine series ( season) 2024 Influenza [...] PM EDT Sore throat POCT STREP A ([facility]) Routine 02/18/2025 11:25 AM EDT Sore throat POCT STREP A ([facility]) Routine 01/13/2025 10:58 AM EDT Sore throat from Last 3 Months Results * Throat culture (Q) (02/18/2025 12:12 PM EDT) Throat Culture SEE NOTE [facility] Comment: ??CULTURE, THROAT ?Micro Number: ?[id number] ??Test Status: ? Final ??Specimen Source: ?? Throat ??Specimen Quality: ??Adequate ??Result: ?No oropharyngeal pathogens recovered. Throat SPECIMEN FROM THROAT / Unknown 02/18/2025 12:12 PM EDT 02/19/2025 3:40 PM EDT Narrative Resulting Agency Comment Performing Lab: ?Site ID: [id number] ?Name: [facility] ?Address: [address] [place] [phone] ?Director: Nikia Ziegler M.D. Kayden ISLAS MICROBIOLOGY - GENERAL ORDERABL ES Final Result Performing Organization Address [facility] Co de Phone Number [facility] [address] [place] [address] * POCT Strep A(In-Clinic) (02/18/2025 11:25 AM EDT) Only the most recent of2 resultswithin the time period is included. POC Strep A Not Detected Not Detected POC Kit Lot Number [id number] POC Expiration Date [id number] Throat 02/18/2025 11:2 5 AM EDT Kayden ISLAS POINT OF CARE ORDERS W/FUTURE F inal Result from Last 3 Months Insurance MEDICAID [place] [employer] on file [place] [employer] file [place] file Care Teams Juvenile Justice Officer Relationship Specialty Start Date End Date No, Pcp (Do Not Change Name) PCP - General 11/16/24
--- OUTSIDE RECORDS SUMMARY | 2025-03-26 11:54 | XMS_ITS | Clinical Summary ---
Author Organization Formerly [facility] Address [address] [place] [address] Care Team Providers Care Pipe Organ Tuner And Repairer Name Role Phone Eunice Gavin MD Primary Care Provider [phone] Dru Baptiste MD Unavailable Unavailable Allergies Active Allergy Reactions Criticality Noted Date Comments [facility] Diarrhea Low 02/08/2025 Medications ondansetron (ZOFRAN) 4 [...] Encounters Date Type Department Care Team Description 03/08/2025 8:30 AM EDT Infusion [facility] [place] [facility] [address] [place] [phone] Luan Evangelista MD Hollister, Brianna N, RN Crohn's disease of both small and large intestine without complication (HCC) (Primary Dx) 03/08/2025 Travel 03/04/2025 Scanned Document [facility], [address] [place] [address] Nina Anne, PA 02/22/2025 Orders Only [address] [phone] Nina Anne, ROSHAN 02/08/2025 8:45 AM EDT Infusion [facility] [place] [facility] [address] [phone] Luan Evangelista MD Curley, Mikaila E, RN Crohn's disease of both small and large intestine without complication (HCC) (Primary Dx) 02/08/2025 Travel 01/29/[address] [address] Nina Anne, PA 01/29/2025 Scanned Document [facility] [address] [place] [phone] Nina Anne, PA 01/23/2025 Telephone [facility] [address] [address] Nina Anne PA 01/21/[address] [place] [address] Nina Anne, ROSHAN Prior Authorization (SKYRIZI 360MG/2.4ML) 01/21/2025 Refill [facility], [address] [place] [address] Nina Anne, ROSHAN Crohn's disease of both small and large intestine without complication (HCC) (Primary Dx) 01/18/2025 Orders Only [facility] [address] [place] [phone] Nina Anne PA 01/18/2025 Orders Only [place] [phone] Nina Anne PA 01/17/2025 11:00 AM EDT Office Visit [address] [address] Nina Anne PA Crohn's disease of colon with complication (HCC) (Primary Dx); Crohn's disease of both small and large intestine without complication (HCC) 01/17/2025 Telephone [facility], [address] [place] [address] Nina Anne PA 01/09/2025 Orders Only [address] [address] Maritza Rashid, ANESTHESIOLOGY TEACHER 01/09/[address] [address] Maritza Rashid, ANESTHESIOLOGY TEACHER 01/08/2025 Orders Only [address] [address] Maritza Rashid, ANESTHESIOLOGY TEACHER 01/02/2025 Orders Only [facility] [address] [phone] Maritza Rashid APRN 12/29/2024 Refill [facility] [address] [phone] Maritza Rashid, ANESTHESIOLOGY TEACHER Gastroesophageal reflux disease, unspecified whether esophagitis present from Last 3 Months Family History Medical [...] Sign Reading Time Taken Comments Blood Pressure 110/64 03/08/2025 8:46 AM EDT Pulse 89 03/08/2025 8:46 AM EDT Temperature 35.9 ??C (96.7 ??F) 03/08/2025 8:46 AM ED T Respiratory Rate 16 02/08/2025 8:49 AM EDT Oxygen Saturation 98% 03/08/2025 8:46 AM EDT Inhaled Oxygen Concentration - - Weight 64.6 kg (142 lb 8 oz) 03/08/2025 8:46 AM EDT Height 162.6 cm (5' 4 ) 02/11/2025 1:04 PM EDT Body Mass Index 24.46 02/11/2025 1:04 PM EDT Plan of Treatment Upcoming Encounters Date Type Department Care Team (Late st Contact Info) Description 04/05/2025 9:00 AM EDT Infusion [facility] [place] [facility] [address] [phone] Luan Evangelista MD [address] [place] [address] 04/15/2025 8:30 AM EDT Office Visit [facility] 113 [facility] [address] [place] [phone] Nina Anne, PA 113 [facility] 303 [place], [place] [phone] 07/01/2025 5:00 PM EDT Consult [facility] Department Of Rheumatology [place] [address] [place] [address] [address] [place] [address] Yenny Rascon MD 160 [facility] 100 [place], [place] [phone] Health Maintenance Due Date Last Done Comments Hepatitis C Virus Screening 2004 COVID-19 Vaccine (#1) 2009 HIV Screening 2017 HPV Vaccines (1 - 3-dose series) 2019 DTaP/Tdap/Td Vaccines (1 - Tdap) 2023 Hepatitis B Vaccines (1 of 3 - 19+ 3-dose series) 2023 Influenza Vaccine 06/07/2025 09/23/2021, , 10/20/2017, Additional history exists Influenza Vaccine Discontinued 09/23/2021, , 10/20/2017, Additional history exists Quantiferon Gold TB Discontinued 01/17/2025 Pneumococcal Vaccine: Pediatric (0-5 Years) and At-Risk Patients (6 to 49 Years) Aged Out No longer eligible based on patient's age to complete this topic Procedures Procedure Name Priority Date/Time Associated Diagnosis Comments IMAGING RESULT Routine 02/22/2025 8:24 AM EDT CALPROTECTIN, STOOL Routine 01/29/2025 1 2:37 PM [...] (HCC) from Last 3 Months Results * Imaging Result (02/22/2025 8:24 AM EDT) Anatomical Region Laterality Modality Other Nina ISLAS [facility] Edite d Result - Final * Calprotectin, Stool (01/29/2025 12:37 PM EDT) Pathologist [facility] Calprotectin, Stool 50 mcg/g [facility], Comment: ?Reference Range: ?<50 ? [...] 02/04/2025 4:09 PM EDT SPLIT 01/17/2025 FROM [id number] us Maritza Rsahid APRN LAB AMB FLUID/STOOL ORDERA BLES Final Result [facility], [address] [place] [address] * Quantiferon ?? -TB Gold Plus, 1 Tube (01/17/2025 3:09 PM EDT) Quantiferon TB Gold Plus, 1T NEGATIVE NEGATIVE [facility] Comment: Negative test result. M. tuberculosis complex infection unlikely. Quantiferon NIL 0.02 IU/mL [facility] [employer] Quantiferon Mitogen-NIL >10.00 IU/mL [facility] Quantiferon TB1-NIL 0.00 IU/mL [facility] Quantiferon TB2-NIL 0.00 IU/mL [facility] Comment: The Nil tube value reflects the [...] T-lymphocytes. For additional information, please refer to https://YouFastUnlock.[employer]ube, Inc/faq/SZX971 (This link is being provided for informational/ educational purposes only.) Blood Blood specimen / Unknown 01/17/2025 3:09 PM EDT 01/17/2025 3:10 PM EDT Narrative [facility] - 01/20/2025 10:16 PM EDT FASTING:NO FASTING: NO Maritza Rashid APRN LAB BLOOD ORDERABLES Final Result [facility] [address] [place] [phone] * (ABNORMAL) Hepatitis B Virus Surface Antibody, Quantitative (01/17/2025 3:09 PM EDT) Hepatitis B Surface Ab (Quant) <5(L) > OR = 10 mIU/mL [facility] Comment: PATIENT DOES NOT HAVE IMMUNITY TO HEPATITIS B VIRUS. For additional information, please refer to http://YouFastUnlock.[employer] Inc/faq/BTE316 (This link is being provided for informational/ educational purposes only). Blood Blood specimen / Unknown 01/17/2025 3:09 PM EDT 01/17/2025 3:10 PM EDT Narrative [facility] - 01/20/2025 10:16 PM EDT FASTING:NO FASTING: NO Maritza Rashid ANESTHESIOLOGY TEACHER LAB BLOOD ORDERABLES Final Result Performing Organization Address [facility] de Phone Number [facility] [address] [place] [phone] * HEPATITIS B VIRUS (HBV) SURFACE ANTIGEN SCREEN, REFLEX CONFIRMATION (01/17/2025 3:09 PM EDT) Hepatitis B Surface Ag Screen NON-REACT AMIRA NON-REACT AMIRA [facility] Comment: For additional information, please refer to http://YouFastUnlock.[employer] Inc/faq/VUI029 (This link is being provided for informational/ educational purposes only.) Blood Blood specimen / Unknown 01/17/2025 3:09 PM EDT 01/17/2025 3:10 PM EDT N[facility]ative [facility] 01/20/2025 10:16 PM EDT FASTING:NO FASTING: NO Maritza Rashid ANESTHESIOLOGY TEACHER LAB BLOOD ORDERABLES Final Result Performing Organization Address [facility] de Phone Number [facility] [address] [place] [phone] * HEPATITIS B VIRUS (HBV) CORE ANTIBODY TOTAL (01/17/2025 3:09 PM EDT) Hepatitis B Core Antibody Total NON-REACT AMIRA NON-REACT AMIRA [facility] Comment: For additional information, please refer to http://YouFastUnlock.[employer] Inc/faq/WQP715 (This link is being provided for informational/ educational purposes only.) Blood Blood specimen / Unknown 01/17/2025 3:09 PM EDT 01/17/2025 3:10 PM EDT N[facility]ative [facility] 01/20/2025 10:16 PM EDT FASTING:NO FASTING: NO us Maritza Rashid ANESTHESIOLOGY TEACHER LAB BLOOD ORDERABLES Final Result [facility] [address] [place] [phone] * (ABNORMAL) Infliximab Level and Anti-Drug Antibody for IBD - [facility] (01/17/2025 3:07 PM EDT) Infliximab Level, IBD 40.2 mcg/mL [facility], Infliximab ADA, IBD 24(H) <10 AU [facility], Interpretation SEE NOTE [facility], Comment: The infliximab and infliximab anti-drug antibody [...] clinical equivalence studies, the FDA and the [place] [employer] advocate applying infliximab clinical guidance to the use of its biosimilars. The [place] [employer] recommends optimal infliximab trough concentration [...] treating healthcare professional should refer to the welding teacher's approved labeling for prescribing, warnings, side effects and other important information. Comment SEE NOTE [facility], Comment: This test was developed and its analytical performance characteristics have been determined by [facility]. It has not been cleared or approved by FDA. This assay has been validated pursuant to the CLIA regulations and is used for clinical purposes. For additional information, please refer to https://education.Verdigris Technologies.SocialDeck/faq/PJA443 (This link is being provided for informational/educational purposes only.) 01/17/2025 3:07 PM EDT 01/17/2025 3:07 PM EDT Narrative [facility] - 01/23/2025 6:15 PM EDT FASTING:NO COLLECTION KIT GIVEN TO PATIENT. PATIENT ADVISED TO RETURN. FASTING: NO Maritza Rashid APRN LAB BLOOD ORDERABLES Final Result [facility], [address] [place] [phone] * Complete Blood Count, with Differential (01/17/2025 3:07 PM EDT) Pathologist [facility] White Blood Cell Count 6.6 3.8 - 10.8 Thousand/u L [facility] Red Blood Cell Count 4.04 3.80 - 5.10 Million/uL [facility] Hemoglobin 12.9 11.7 - 15.5 g/dL [facility] Hematocrit 38.9 35.0 - 45.0 % [facility] MCV 96.3 80.0 - 100.0 fL [facility] MCH 31.9 27.0 - 33.0 pg [facility] MCHC 33.2 32.0 - 36.0 g/dL [facility] Comment: For adults, a slight decrease in the calculated MCHC value (in the range of 30 to 32 g/dL) is most likely not clinically significant; however, it should be interpreted with caution in correlation with other red cell parameters and the patient's clinical condition. RDW 11.3 11.0 - 15.0 % [facility] Platelet Count 390 140 - 400 Thousand/u L [facility] MPV 9.6 7.5 - 12.5 fL [facility] Abs Neutrophils Auto 3,069 1,500 - 7,800 cells/uL [facility] Abs Lymphocytes Auto 2,765 850 - 3,900 cells/uL [facility] Abs Monocytes Auto 422 200 - 950 cells/uL [facility] Abs Eosinophils Auto 290 15 - 500 cells/uL [facility] Abs Basophils Auto 53 0 - 200 cells/uL [facility] Neutrophils Auto 46.5 % [facility] Lymphocytes Auto 41.9 % [facility] Monocytes Auto 6.4 % [facility] Eosinophils Auto 4.4 % [facility] Basophils Auto 0.8 % [facility] Blood Blood specimen / Unknown 01/17/2025 3:07 PM EDT 01/17/2025 3:07 PM EDT N[facility]ative [facility] - 01/23/2025 6:15 PM EDT FASTING:NO COLLECTION KIT GIVEN TO PATIENT. PATIENT ADVISED TO RETURN. FASTING: NO Maritza Rashid APRN LAB BLOOD ORDERABLES Final Result Performing Organization Address [facility] [place] Co de Phone Number [facility] [address] [place] [phone] * (ABNORMAL) Erythrocyte Sedimentation Rate (ESR) (01/17/2025 3:07 PM EDT) Pathologist [facility] Erythrocyte Sediment Rate (ESR) 36(H) < OR = 20 mm/h [facility] Blood Blood specimen / Unknown 01/17/2025 3:07 PM EDT 01/17/2025 3:07 PM EDT Narrative [facility] - 01/23/2025 6:15 PM EDT FASTING:NO COLLECTION KIT GIVEN TO PATIENT. PATIENT ADVISED TO RETURN. FASTING: NO Maritza Rashid APRN LAB BLOOD ORDERABLES Final Result Performing Organization Address [facility] [place]/[facility] Co de Phone Number [facility] [address] [place] [phone] * C-REACTIVE PROTEIN (01/17/2025 3:07 PM EDT) C-Reactive Protein <3.0 <8.0 mg/L [facility] Blood Blood specimen / Unknown 01/17/2025 3:07 PM EDT 01/17/2025 3:07 PM EDT N[facility]ative [facility] 01/23/2025 6:15 PM EDT FASTING:NO COLLECTION KIT GIVEN TO PATIENT. PATIENT ADVISED TO RETURN. FASTING: NO Maritza Rashid ANESTHESIOLOGY TEACHER LAB BLOOD ORDERABLES Final Result Performing Organization Address [facility] [place]/[facility] Co de Phone Number [facility] [address] [place] [phone] * Lipase (01/17/2025 3:07 PM EDT) Lipase 26 7 - 60 U/L [facility] Blood Blood specimen / Unknown 01/17/2025 3:07 PM EDT 01/17/2025 3:07 PM EDT N[facility]ative [facility] - 01/23/2025 6:15 PM EDT FASTING:NO COLLECTION KIT GIVEN TO PATIENT. PATIENT ADVISED TO RETURN. FASTING: NO Maritza Rashid ANESTHESIOLOGY TEACHER LAB BLOOD ORDERABLES Final Result Performing Organization Address [facility] de Phone Number [facility] [address] [place] [phone] * Comprehensive Metabolic Panel (01/17/2025 3:07 PM EDT) Glucose 90 65 - 139 mg/dL [facility] Comment: ? Non-fasting reference interval Blood Urea Nitrogen (BUN) 15 7 - 25 mg/dL [facility] Creatinine 0.73 0.50 - 0.96 mg/dL [facility] Creatinine w/ eGFR 121 > OR = 60 mL/min/1. 73m2 [facility] BUN/Creatinine Ratio SEE NOTE: (calc) [facility] Comment: ?? Not Reported: BUN and Creatinine are within ?? reference range. ? Sodium 137 135 - 146 mmol/L [facility] Potassium 3.9 3.5 - 5.3 mmol/L [facility] Chloride 101 98 - 110 mmol/L [facility] CO2 28 20 - 32 mmol/L [facility] Calcium 9.8 8.6 - 10.2 mg/dL [facility] Protein, Total 8.0 6.1 - 8.1 g/dL [facility] Albumin 4.6 3.6 - 5.1 g/dL [facility] Globulin 3.4 1.9 - 3.7 g/dL (calc) [facility] Albumin/Globuli n Ratio 1.4 1.0 - 2.5 (calc) [facility] Bilirubin, Total 0.4 0.2 - 1.2 mg/dL [facility] Alkaline Phosphatase 67 31 - 125 U/L [facility] Aspartate Aminotrans (AST) 15 10 - 30 U/L [facility] Alanine Aminotrans (ALT) 13 6 - 29 U/L [facility] Blood Blood specimen / Unknown 01/17/2025 3:07 PM EDT 01/17/2025 3:07 PM EDT Narrative [facility] - 01/23/2025 6:15 PM EDT FASTING:NO COLLECTION KIT GIVEN TO PATIENT. PATIENT ADVISED TO RETURN. FASTING: NO us Maritza Rashid ANESTHESIOLOGY TEACHER LAB BLOOD ORDERABLES Final Result [facility] [address] [place] [phone] from Last 3 Months Insurance [facility] Care Teams Pipe Organ Tuner And Repairer Relationship Specialty Start Date End Date Eunice Gavin MD [address] [place] [address] PCP - General 08/20/24 Dru Baptiste MD [address] [place] [address] Pediatric, General 12/05/24
--- OUTSIDE RECORDS SUMMARY | 2025-03-26 11:54 | XMS_ITS | Encounter Summary ---
Author Organization [facility] Address [address] [place] [address] Care Team Providers Care Metals Analyst Name Role Phone Eunice Gavin MD Primary Care Provider [phone] Dru Baptiste MD Unavailable Unavailable Encounter Details Date Type Department Care Team (Late Contact Info) Description 01/29/2025 Scanned Document [facility] [address] [place] [address] Nina Anne, PA [address] [place] [phone] Social History Tobacco Use Types Packs/Day Years [...] Info) Description 04/05/2025 9:00 AM EDT Infusion [facility] [place] [facility] Outpatient Infusion [address] [phone] Luan Evangelista MD [address] [place] [address] 04/15/2025 8:30 AM EDT Office Visit [facility] [address] [facility] [address] [place] [phone] Nina Anne PA 113 [facility] 303 [place] [address] 07/01/2025 5:00 PM EDT Consult [facility] Department Of Rheumatology [place] [address] [place] [address] [address] [place] [address] Yenny Rascon MD [address] [facility] 100 [place] [address] documented as of this encounter Visit Diagnoses Not on filedocumented in this encounter Care Teams Metals Analyst Relationship Specialty Start Date End Date Eunice Gavin MD [address] [place] [address] PCP - General 08/20/24 Dru Baptiste MD [address] [place] [address] Pediatric, General 12/05/24 documented as of this encounter
--- OUTSIDE RECORDS SUMMARY | 2025-03-26 11:54 | XMS_ITS | Clinical Summary ---
Author Organization [facility] it Address [address] [place] [address] Care Team Providers Care Utility Driver Name Role Phone Unavailable Primary Care Provider [...]
--- OUTSIDE RECORDS SUMMARY | 2025-03-26 11:54 | XMS_ITS | Encounter Summary ---
Author Organization [facility] Address [address] [place] [address] Care Team Providers Care Mustanger Name Role Phone Eunice Gavin MD Primary Care Provider Dru Baptiste MD Unavailable Unavailable Encounter Details Date Type Department Care Team (Late Contact Info) Description 03/04/2025 Scanned Document [facility] [address] [place] [address] Nina Anne, PA [address] [place] [address] Social History Tobacco Use Types Packs/Day Years [...] Info) Description 04/05/2025 9:00 AM EDT Infusion [facility] [place] [facility] Outpatient Infusion [address] [phone] Luan Evangelista MD [address] [place] [address] 04/15/2025 8:30 AM EDT Office [facility] 113 [facility] [address] [place] [phone] Nina Anne PA 113 [facility] 303 [place] [address] 07/01/2025 5:00 PM EDT Consult [facility]icians Department Of Rheumatology [place] [address] [place] [address] [address] [place] [address] Yenny Rascon MD 160 [facility] 100 [place] [address] documented as of this encounter Visit Diagnoses Not on filedocumented in this encounter Care Teams Mustanger Relationship Specialty Start Date End Date Eunice Gavin MD [address] [place] [address] PCP - General 08/20/24 Dru Baptiste MD [address] [place] [address] Pediatric, General 12/05/24 documented as of this encounter
== END 2025-03-26 11:41 | disposition home or self-care (01) ==
LOC: HO.HMCP 10:39
PROVIDERS: PCP Pediatrics; Visit Provider Pediatrics
DX: Z00.00 Encounter for general adult medical examination without abnormal findings (principal); F12.90 Cannabis use, unspecified, uncomplicated; F41.9 Anxiety disorder, unspecified; K50.90 Crohn's disease, unspecified, without complications; J45.20 Mild intermittent asthma, uncomplicated

== ENCOUNTER → 2025-03-26 10:38 | Outpatient (BNVA) | payer OTHER, SELFPAY | PROVIDERS: PCP Pediatrics; Visit Provider Pediatrics | DX: Z00.00 Encounter for general adult medical examination without abnormal findings (principal); F12.90 Cannabis use, unspecified, uncomplicated; F41.9 Anxiety disorder, unspecified; K50.90 Crohn's disease, unspecified, without complications; J45.20 Mild intermittent asthma, uncomplicated | CPT/HCPCS: 96127; 96160 ==

== ENCOUNTER 2025-04-22 12:34 | Outpatient (REF) | payer OTHER, SELFPAY | END 2025-04-22 12:35 | disposition home or self-care (01) | LOC: HO.LAB 12:34 | PROVIDERS: PCP Pediatrics; Visit Provider Physician Assistant | DX: Z13.89 Encounter for screening for other disorder (principal) ==

== ENCOUNTER 2025-04-22 12:34 | Outpatient (AMB) | payer OTHER, SELFPAY ==
--- NOTE | 2025-04-22 12:35 | A.OFFVISP_ITS ---
Vital Signs 04/22/25 12:38 Height 5 ft 4.6 in Height percentile 75 Weight 139 lb 6 oz Weight percentile 75 Measurement Type Standing Scale BMI 23.5 BMI percentile 75 Temp 98.4 F Temp Source Oral Pulse 98 Pulse Source Pulse Oximeter BP 108/62 Blood Pressure Source Manual Cuff/Palpation Position Sitting Pulse Oximetry (%) 99 Pediatric Intake Visit Reasons: Shortness of breath Dry Can Tender Required: No Accompanied by: Self / Same As Patient Allergies Seasonal Allergies Allergy (Mild, Verified 04/22/25 12:39) sneezing, runny nose bee pollen Allergy (Unknown, Verified 04/22/25 12:39) Unknown mold Allergy (Unknown, Verified 04/22/25 12:39) Unknown Medication List - Last Reconciled 04/22/25 by Sanjuana Gavin PA-C albuterol sulfate 90 mcg/actuation 2 puffs inhalation Q4-6H PRN clobetasol 0.05% topical BID epinephrine (EpiPen) 0.3 mg (0.3 mL) IM Q15M PRN fluocinolone and shower cap 0.01 % topical hydrocortisone 2.5% 1 appl topical BID risankizumab-rzaa (Skyrizi) 150 mg subcut Q4W tretinoin 0.025% 1 appl topical BEDTIME triamcinolone acetonide 0.025% 1 appl topical BID Dental Screening Dental Screen Date: 03/26/25 HPI Comments Details: 19 year old female with history of psoriasis, Crohn's disease on Skyrizi, mild intermittent asthma, and anxiety presents for evaluation of chest pain X 2 days. She reports the pain started behind the right shoulder and radiated to the right upper chest and breast. She reports it was a stabbing/tingly feeling. This morning, she reports the pain is felt in the left side of the chest. It is described as sharp and worse when she takes a deep breath. It is constant. She admits to mild nasal congestion, cough and lack of appetite for the past few days. Not sure if it is allergies or a cold. No fevers. She admits to palpitations and nausea. No vomiting, diarrhea, or pain in calves. Admits to smoking marijuana but no cigarette use in 2 years. Has Nexplanon implant in right upper arm. Has a history of pain in multiple joints including left shoulder and has a Rheumatology eval scheduled. [facility] Medical History Depression Prolonged menstrual cycle Environmental allergies Mild intermittent asthma Surgical History No pertinent past surgical history Family History Mother Depression Anxiety Father Alcohol abuse Sister Depression ADHD Maternal Grandmother Depression Maternal Aunt Bipolar disorder Alcohol abuse Family/Other Obesity Bipolar disorder Anxiety Depression Substance abuse Heart disease Asthma HTN (hypertension) Social History Household Members: Family Household Members Other:: lives with mother. sees dad. Alcohol intake: current (occasionally) Alcohol intake frequency: other (occasional) Patient Tobacco Use Status: Never used Tobacco Second Hand Smoke Exposure: No Substance Use Type: Marijuana Cognitive needs: No Hearing needs: No Vision needs: No Review of Systems Const All systems reviewed & are unremarkable except as noted in HPI and below Pediatric Exam Const Constitutional General: no acute distress, well developed, alert and awake Nutritional appearance: well nourished [facility] Head: normal to inspection, normocephalic and atraumatic Ears: hearing grossly normal bilaterally and external ears normal Nose: Normal external nose present, Normal nares present and Normal nasal mucous membranes and turbinates present Mouth: Normal oral and palatal mucosa present, lip normal, tongue normal, moist mucous membranes and palate normal Throat: posterior oropharynx normal, tonsils normal and uvula midline Eyes General: appearance normal, both eyes and all related structures Alignment and Position: alignment normal Periorbital: periorbital findings normal Eyelids: eyelids normal Conjunctivae: conjunctivae normal Sclerae: sclerae normal Pupils: Equal, round and reactive pupils present Direct ophthalmoscopy: no photophobia Neck Lymphatic: no lymphadenopathy noted Chest Chest: normal inspection of the chest and tenderness sternum and costochondral junction left Resp Effort & Inspection: normal respiratory effort and able to speak in complete sentences Auscultation: clear to auscultation bilaterally Cardio Jugular venous distension: no JVD Palpation: normal PMI Rate: regular rate Rhythm: regular rhythm Heart sounds: S1 normal heart sound present and S2 normal heart sound present Bruits: no carotid bruit Skin General: no rashes or lesions noted, elasticity normal and turgor normal Neuro Cranial nerves: Yes Equal, round and reactive pupils present Extrem General: normal to inspection, no joint enlargement and no clubbing, cyanosis or edema Psych Appearance: well kempt Assessment & Plan Assessment & Plan (1) Chest pain: Code(s): R07.9 - Chest pain, unspecified Qualifiers: Chest pain type: intercostal pain Qualified Code(s): R07.82 - Intercostal pain Plan: Suspect costochondritis; will swab for COVID/Flu/RSV and order an EKG and chest xray to rule out cardiopulmonary process. Will f/u once results return. ED precautions reviewed. F/u with specialists as planned. Orders: Orders SARS-CoV2/FLU/RSV Today R09.89 - Other specified symptoms and signs involving the circulatory and respiratory systems ECG 12 lead EKG Today R07.9 - Chest pain, unspecified XR chest 2V Today R07.9 - Chest pain, unspecified Medications: New etonogestrel (Nexplanon) subdermal Coding Level of Care Code Est Pt Level 4 (83184) Diagnoses Intercostal pain R07.82 Chest pain type: intercostal pain
[2025-04-22 12:38] VITALS: BP 108/62; PULSE 98; TEMP 36.9; O2SAT 99; BMI 23.5
== END 2025-04-22 13:08 | disposition home or self-care (01) ==
LOC: HO.HMCP 12:35
PROVIDERS: PCP Pediatrics; Visit Provider Physician Assistant
DX: R07.82 Intercostal pain (principal)

== ENCOUNTER 2025-04-22 13:07 | Outpatient (REF) | payer OTHER, SELFPAY ==
--- NOTE | ~2025-04-22 | XR_ITS ---
EXAMINATION: XR CHEST CLINICAL INFORMATION: R07.9 - Chest pain, unspecified COMPARISON: None available. TECHNIQUE: 2 views of the chest were obtained. FINDINGS: No significant abnormality is noted involving the heart, lungs, mediastinum, bony thorax or soft tissues. XR/XR chest 2V IMPRESSION: Unremarkable examination. Electronically signed by: Kurt Tilley MD 04/22/2025 01:43 PM EDT
--- NOTE | 2025-04-22 13:13 | ECG_ITS ---
Test Reason : CP Blood Pressure : */* mmHG Vent. Rate : 80 BPM Atrial Rate : 80 BPM P-R Int : 146 ms QRS Dur : 86 ms QT Int : 342 ms P-R-T Axes : 69 65 50 degrees QTcB Int : 394 ms Normal sinus rhythm with sinus arrhythmia Normal ECG No previous ECGs available Referred By: Sanjuana Gavin Electronically Signed By: Jose Alberto Calle
[2025-04-22 17:49] LABS: Influenza A PCR NEGATIVE (Negative); Influenza B PCR NEGATIVE (Negative); Resp Syncy Virus RNA Qual PCR NEGATIVE (Negative); SARS COV2 PCR INHOUSE NEGATIVE (Negative)
== END 2025-04-22 13:08 | disposition home or self-care (01) ==
LOC: HO.LAB 13:07
PROVIDERS: PCP Pediatrics; Visit Provider Physician Assistant
DX: R07.9 Chest pain, unspecified (principal); R09.89 Other specified symptoms and signs involving the circulatory and respiratory systems; R06.02 Shortness of breath
CPT/HCPCS: 0241U; 71046; 93005

== ENCOUNTER → 2025-04-22 13:13 | Outpatient (BNV) | payer OTHER, SELFPAY | PROVIDERS: PCP Pediatrics; Visit Provider Internal Medicine Cardiovascular Disease | DX: R07.9 Chest pain, unspecified (principal) | CPT/HCPCS: 93010 ==

== ENCOUNTER → 2025-04-22 13:26 | Outpatient (BNV) | payer OTHER, SELFPAY | PROVIDERS: PCP Pediatrics; Visit Provider Radiology Diagnostic Radiology | DX: R07.9 Chest pain, unspecified (principal) | CPT/HCPCS: 71046 ==

== ENCOUNTER 2025-07-19 11:06 | Outpatient (AMB) | payer OTHER, SELFPAY ==
--- OUTSIDE RECORDS SUMMARY | 2025-07-17 10:45 | XMS_ITS | Encounter Summary ---
Author Organization [facility] Address [address] [place] [address] Phone Care Team Providers Care Puppet Maker Name Role Phone No, Pcp (Do Not Change Name) Primary Care Provid er Unavailable Reason for Visit * Reason Comments Sore Throat Pt started symptoms yesterday with sore throat and stuffy nose started today. Ear Pain Nasal Congestion Encounter Details Date Type Department Care Team (Late st Contact Info) Description 07/17/2025 10:45 AM EDT Office Visit [facility] [place] [address] [place] [address] Kayden Torres PA [address] [place] [id number] Sore throat (Primary Dx); Acute upper respiratory infection Social History Tobacco Use Types Packs/Day Years [...] Sign Reading Time Taken Comments Blood Pressure 117/72 07/17/2025 11:11 AM EDT Pulse 99 07/17/2025 11:11 AM EDT Temperature 36.2 C (97.2 F) 07/17/2025 11:11 AM EDT Respiratory Rate 16 07/17/2025 11:11 AM EDT Oxygen Saturation 100% 07/17/2025 11:11 AM EDT Inhaled Oxygen Concentration - - Weight 60.3 kg (133 lb) 07/17/2025 11:11 AM EDT Height 162.6 cm (5' 4 ) 07/17/2025 11:11 AM EDT Body Mass Index 22.83 07/17/2025 11:11 AM EDT documented in this encounter Patient Instructions * Patient Instructions* Kayden Torres PA - 07/17/2025 10:45 AM EDT Thank you for choosing [facility] today! Diagnosis: Acute upper respiratory infection Results for orders placed or performed in visit on 07/17/25 POCT Strep A(In-Clinic) Result Value Ref Range POC Strep A Not Detected Not Detected POC Kit Lot Number [id number] POC Expiration Date 1097079 POCT SARS COV-2 (COVID-19) PCR/Influenza A+B (In-Clinic) Result Value Ref Range POC SARS-CoV-2 (COVID-19) PCR Not Detected Not Detected POC Influenza A Not Detected Not Detected POC Influenza B Not Detected Not Detected POC Kit Lot Number [id number] POC Expiration Date [id number] This is most likely a viral illness however with your Crohn's disease You were increased risk for complication from your infections. If you develop persistent symptoms, fever, chest pain or shortnessfor breath or difficulty swallowing seek immediate medical attention. -Your vital signs were reviewed. -We have [...] Progress Notes * Kayden Torres PA - 07/17/2025 10:45 AM EDT Subjective: Reason for Visit: Sore Throat (Pt started symptoms yesterday with sore throat and stuffy nose started today.), Ear Pain, and Nasal Congestion History provided by: self Sore Throat 19-year-old female with Crohn's on immunosuppressant medication, psoriasis, asthma presents with sore throat, nasal congestion, ear pain since yesterday. Patient has been taking [id number] medication with improvement. She denies any sick contacts or COVID exposure. Patient denies any difficulty swallowing or neck swelling. Denies fever, chest pain or shortness for breath. History: Allergies[1] Past Medical History[2] Past Surgical History[3] Current Outpatient Medications: clindamycin, APPLY TO FACE [...] 2 (two) times daily. to affected area Objective: BP 117/72 (Site: r a, Position: Sitting, Cuff Size: Medium) Pulse (!) 99 Temp 97.2 ??F (36.2 ??C) (Oral) Resp 16 Ht 5' 4 (1.626 m) Wt 60.3 kg SpO2 100% BMI 22.83 kg/m?? No results found. Physical Exam General: No acute distress, well-developed, [...] moist. Oropharynx: Erythematous, negative for tonsillar exudate, No submandibular, submental, or sublingual tenderness to palpation, with no elevation of the mouth floor, tongue non-swollen, uvula midline, no retropharyngeal bulge, phonation intact, no trismus, tolerating secretions. Face symmetric with no visible facial swelling, no redness, or evidence to suggest facial soft tissue infection. negative Bilateral anterior cervical adenopathy Neck: Supple, trachea midline AROM normal. No meningismus Respiratory: Respirations are non-labored, Symmetrical chest wall expansion, clear to auscultation bilaterally with no wheezes, no rales, no rhonchi Cardiology- Regular Rhythm Results for orders placed or performed in visit on 07/17/25 POCT Strep A(In-Clinic) Result Value Ref Range POC Strep A Not Detected Not Detected POC Kit Lot Number [id number] POC Expiration Date [id number] POCT SARS COV-2 (COVID-19) PCR/Influenza A+B (In-Clinic) Result Value Ref Range POC SARS-CoV-2 (COVID-19) PCR Not Detected Not Detected POC Influenza A Not Detected Not Detected POC Influenza B Not Detected Not Detected POC Kit Lot Number [id number] POC Expiration Date [id number] No orders to display Orders Placed This Encounter Procedures POCT Strep A(In-Clinic) POCT SARS COV-2 (COVID-19) PCR/Influenza A+B (In-Clinic) Procedures Assessment & Plan: Encounter Diagnoses Code Name Primary? J02.9 Sore throat Yes J06.9 Acute upper respiratory infection Requested Prescriptions No prescriptions requested or ordered in this encounter Medical Decision Making: -Rapid strep negative -Sore throat consistent with viral pharyngitis. -Feel peritonsillar and retropharyngeal abscess is unlikely as the patient has absence of muffled voice, shifting of uvula, or unilateral tonsillar hypertrophy. The patient was advised that if they develop difficulty speaking, difficulty tolerating secretions, or if they have difficulty swallowing to go to the ER immediately for further evaluation. Dispo: Home Electronically Signed by ROSHAN Brown, July 17, 2025 [1] Allergies Allergen Reactions Bee Pollen Throat Closes Bee Venom Protein (Honey Bee) Throat Closes Pollen Extracts Congestion [place] Diarrhea [2] Past Medical History: Diagnosis Date Arthritis Asthma (HC CODE) Crohn's disease (HC Code) Psoriasis [3] Past Surgical History: Procedure Laterality Date NO PAST SURGERIES documented in this encounter Plan of Treatment Not on file documented as of this encounter Procedures Procedure Name Priority Date/Time Associated Diagnosis Comments POCT SARS COV-2 (COVID-19) PCR/INFLUENZA A+B ([facility]) Routine 07/17/2025 11:39 AM EDT Sore throat POCT STREP A ([facility]) Routine 07/17/2025 11:38 AM EDT Sore throat documented in this encounter Results * POCT SARS COV-2 (COVID-19) PCR/Influenza A+B (In-Clinic) (07/17/2025 11:39 AM EDT) POC SARS-CoV-2 (COVID-19) PCR Not Detected Not Detected POC Influenza A Not Detected Not Detected POC Influenza B Not Detected Not Detected POC Kit Lot Number [id number] POC Expiration Date [id number] Nasal Swab 07/17/2025 11:3 9 AM EDT us Kayden ISLAS POINT OF CARE ORDERS W/FUTURE F inal Result * POCT Strep A(In-Clinic) (07/17/2025 11:38 AM EDT) POC Strep A Not Detected Not Detected POC Kit Lot Number [id number] POC Expiration Date [id number] Throat 07/17/2025 11:3 8 AM EDT us Kayden ISLAS POINT OF CARE ORDERS W/FUTURE F inal Result documented in this encounter Visit Diagnoses Diagnosis Sore throat- Primary Acute pharyngitis Acute upper respiratory infection Acute upper respiratory infections of unspecified site documented in this encounter Care Teams Puppet Maker Relationship Specialty Start Date End Date No, Pcp (Do Not Change Name) PCP - General 11/16/24 documented as of this encounter
--- NOTE | 2025-07-19 11:32 | MHC.OFVISPED ---
Pediatric Intake Visit Reasons: TH-? Flu [phone] Allergies Seasonal Allergies Allergy (Mild, Verified 04/22/25 12:39) sneezing, runny nose bee pollen Allergy (Unknown, Verified 04/22/25 12:39) Unknown mold Allergy (Unknown, Verified 04/22/25 12:39) Unknown Medication List - Last Reconciled 07/19/25 by Sanjuana Gavin PA-C albuterol sulfate 90 mcg/actuation 2 puffs inhalation Q4-6H PRN clobetasol 0.05% topical BID epinephrine (EpiPen) 0.3 mg (0.3 mL) IM Q15M PRN etonogestrel (Nexplanon) subdermal fluocinolone and shower cap 0.01 % topical hydrocortisone 2.5% 1 appl topical BID ondansetron HCl 4 mg PO Q8H PRN 2 days risankizumab-rzaa (Skyrizi) 150 mg subcut Q4W tretinoin 0.025% 1 appl topical BEDTIME triamcinolone acetonide 0.025% 1 appl topical BID Dental Screening Dental Screen Date: 03/26/25 HPI Comments Details: 19-year-old female with history of Crohn's disease on Skyrizi presents for evaluation of nasal congestion, sore throat, cough, vomiting and diarrhea x6 days. Symptoms are getting worse. Reports she was at a wedding over the weekend where she suspects she caught something from someone who was sick. She reports she went to urgent care in [place] earlier this week. At that visit she reports COVID Flu and strep swabs were negative. Reports bilateral ear blockage. Eating and drinking less than usual. No chest pain or difficulty breathing. No new rashes. Vomiting and diarrhea started this morning. Reports her mother also recently had similar symptoms. She requests a prescription for Zofran. [facility] Medical History (Updated 04/22/25 @ 13:02 by Sanjuana Gavin PA-C) Psoriasis Depression Prolonged menstrual cycle Environmental allergies Mild intermittent asthma Surgical History No pertinent past surgical history Family History Mother Depression Anxiety Father Alcohol abuse Sister Depression ADHD Maternal Grandmother Depression Maternal Aunt Bipolar disorder Alcohol abuse Family/Other Obesity Bipolar disorder Anxiety Depression Substance abuse Heart disease Asthma HTN (hypertension) Social History Household Members: Family Household Members Other:: lives with mother. sees dad. Both parents involved: Yes Alcohol intake: current (occasionally) Alcohol intake frequency: other (occasional) Patient Tobacco Use Status: Never used Tobacco Second Hand Smoke Exposure: No Substance Use Type: Marijuana Cognitive needs: No Hearing needs: No Vision needs: No Review of Systems Const All systems reviewed & are unremarkable except as noted in HPI and below Pediatric Exam Const Constitutional General: no acute distress, well developed, alert and awake Nutritional appearance: well nourished [facility] Head: normal to inspection, normocephalic and atraumatic Ears: hearing grossly normal bilaterally Nose: Normal external nose present Mouth: lip normal Eyes Periorbital: periorbital findings normal Sclerae: sclerae normal Neck Other: Normal to inspection, supple Resp Effort & Inspection: normal respiratory effort and able to speak in complete sentences Skin General: no rashes or lesions noted Psych Appearance: well kempt Mood: congruent mood Telehealth Telehealth Telehealth Platform: [employer] Location of provider rendering services: other (Home office) Location of patient: other (Office parking lot) Patient Identification confirmed using: Name, : Yes Telehealth method: video Patient verbally consented to treatment: Yes Patient verbally consented to billing insurance company: Yes Patient informed of any privacy concerns related to visit: Yes Minutes spent on Phone/Video with Pt.: 15 Assessment & Plan Assessment & Plan (1) Cough: Code(s): R05.9 - Cough, unspecified (2) Vomiting: Code(s): R11.10 - Vomiting, unspecified Plan Recommended obtaining a respiratory pathogen panel. Prescription for Zofran 4 mg sent to be used as needed for nausea and vomiting. Recommended she continue supportive care with Tylenol or Motrin, increased fluids and rest. Will follow-up once test results are available. Patient agrees with plan. Orders: Orders Resp Pathogen Panel - [facility] [place] Today J06.9 - Acute upper respiratory infection, unspecified Medications: New ondansetron HCl 4 mg PO Q8H PRN 6 tabs 0RF nausea and vomiting 2 days Coding Level of Care Code Tele Est Pt Level 3 (33223) Diagnoses Cough R05.9 Vomiting R11.10
--- OUTSIDE RECORDS SUMMARY | 2025-07-19 13:02 | XMS_ITS | Clinical Summary ---
Author Organization [address] Address [address] [place] [id number] Care Team Providers Care Telemarketing Fundraiser Name Role Phone No, Pcp (Do Not Change Name) Primary Care Provid er Unavailable Allergies Active Allergy Reactions Criticality Noted Date Comments Bee Pollen Throat Closes 09/07/2024 Bee Venom Protein (Honey Bee) Throat Closes 08/2025 [place] Diarrhea Low 02/08/2025 Pollen Extracts Congestion 11/16/2024 [...] daily. to affected area 12/03/19 25 Active Active Problems Problem Noted Date Diagnosed Date Sore throat 02/18/2025 Crohn's disease of both small and large intestin e 01/13/2025 Infliximab long-term use 01/13/2025 Asthma 01/13/2025 Streptococcal pharyngitis 01/13/2025 Acute cough 11/16/2024 Acute upper respiratory infection 11/16/2024 Encounters Date Type Department Care Team Description 07/17/2025 10:45 AM EDT Office Visit [facility] [address] [place] [address] Kayden Torres, PA Sore throat (Primary Dx); Acute upper respiratory infection from Last 3 Months Immunizations Immunization Administration Dates Next Due DTaP 09/22/2009,11/25/2005 [id number] 08/18/2006,2004,2004 H1N1 for historical documentation only 9 [...] Mass Index 22.83 07/17/2025 11:11 AM EDT Plan of Treatment Health Maintenance Due Date Last Done Comments HIV screening 2017 Meningococcal B Vaccine (1 of 2 - Standard) 2020 Chlamydia screening 2021 Hepatitis C screening 2022 Pneumococcal Vaccine (2 - 49 years) (1 of 2 - PCV) 2023 08/18/2006, 11/25/2005, 03/13/2005, Additional history exists Influenza Vaccine Pediatric (#1) 2025 09/23/2021, 08/22/2018, 10/20/2017, Additional history exists Covid-19 vaccine series ( - season) 2025 DTaP/TDaP Vaccines (7 - Td or Tdap) [...] Comments POCT SARS COV-2 (COVID-19) PCR/INFLUENZA A+B ([facility]) Routine 07/17/2025 11:39 AM EDT Sore throat POCT STREP A ([facility]) Routine 07/17/2025 11:38 AM EDT Sore throat from Last 3 Months Results * POCT SARS COV-2 (COVID-19) PCR/Influenza A+B (In-Clinic) (07/17/2025 11:39 AM EDT) Pathologist [facility] POC SARS-CoV-2 (COVID-19) PCR Not Detected Not Detected POC Influenza A Not Detected Not Detected POC Influenza B Not Detected Not Detected POC Kit Lot Number [id number] POC Expiration Date [id number] Nasal Swab 07/17/2025 11:3 9 AM EDT Kayden ISLAS POINT OF CARE ORDERS W/FUTURE F inal Result * POCT Strep A(In-Clinic) (07/17/2025 11:38 AM EDT) Pathologist [facility] POC Strep A Not Detected Not Detected POC Kit Lot Number [id number] POC Expiration Date [id number] [facility] 07/17/2025 11:3 8 AM EDT Kayden ISLAS POINT OF CARE ORDERS W/FUTURE F inal Result from Last 3 Months Insurance [place] Member Subscriber Plan / Payer (Ef fective 2024-Present) Name:Emily Bishop Relation to Subscriber:Self Name:Emily Bishop Payer ID:[id number] Group ID:Not on file Type:Not on file Address: [address] on file [place] on file [place] Member Subscriber Plan / Payer (Ef fective 2024-Present) Name:Emily Bsihop Relation to Subscriber:Self Name:Emily Bishop Payer ID:[id number] Group ID:Not on file Type:Not on file Address: [address] on file Care Teams Telemarketing Fundraiser Relationship Specialty Start Date End Date No, Pcp (Do Not Change Name) PCP - General 11/16/24
--- OUTSIDE RECORDS SUMMARY | 2025-07-19 13:02 | XMS_ITS | Encounter Summary ---
Author Organization [facility] Address [address] [place] [address] Care Team Providers Care Fabrication Department Supervisor Name Role Phone Eunice Gavin MD Primary Care Provider [phone] Dru Baptiste MD Unavailable Unavailable Encounter Details Date Type Department Care Team (Late st Contact Info) Description 03/04/2025 Scanned Document [facility] [address] [place] [id number] Nina Anne, PA [address] [facility] [address] [phone] Social History Tobacco Use Types Packs/Day Years [...] as of this encounter Plan of Treatment Not on file documented as of this encounter Visit Diagnoses Not on filedocumented in this encounter Care Teams Fabrication Department Supervisor Relationship Specialty Start Date End Date Eunice Gavin MD [address] [facility] [place] [id number] PCP - General 08/20/24 Dru Baptiste MD [address] [place] [address] Pediatric, General 12/05/24 documented as of this encounter
--- OUTSIDE RECORDS SUMMARY | 2025-07-19 13:02 | XMS_ITS | Clinical Summary ---
Author Organization [facility] it[facility] Address [address] [place] [address] Care Team Providers Care Sanitarian Inspector Name Role Phone Unavailable Primary Care Provider [...] of 3 - 19+ 3-dose series) 2023 Depression Screening 11/07/2024 COVID-19 Vaccine (1 - 2023-2 5 season) 2025 Influenza Vaccine (#1) 2025 HIB Vaccines Aged Out No longer [...] 5 Years) and At-Risk Patients (6 to 49 Years) Aged Out No longer eligible b ased on patient's age to complete this topic RSV Immunization Patients Un emily 20 months Aged Out No longer eligible b ased on patient's age to complete this topic
--- OUTSIDE RECORDS SUMMARY | 2025-07-19 13:02 | XMS_ITS | Clinical Summary ---
Author Organization [facility] Address [address] [place] [address] Care Team Providers Care Printer Technician Name Role Phone Eunice Gavin MD Primary Care Provider [phone] Source Comments Please note that some or [...] so, obtain the minor's consent prior to disclosure.[facility] Allergies Active Allergy Reactions Criticality Noted Date Comments Bee Pollen 09/07/2024 Seasonal 09/07/2024 Medications inFLIXimab-dyyb (INFLECTRA) 100 mg Recon Soln Inject 400 mg into the vein 06/25/20 24 Active ondansetron (ZOFRAN) 4 MG tablet Take 4 mg by mouth 06/25/20 24 Active PANTOprazole (PROTONIX) 40 MG tablet Take 1 tablet by mouth 09/22/20 23 025 Active sertraline (ZOLOFT) 25 MG tablet Please see attached for detailed directions 08/17/20 24 Active risankizumab-rzaa (SKYRIZI) 60 mg/mL Solution 0 Refills, Maintenance, 04/24/25 5:46:00 PM EDT, Partial fill upon patient request if the prescription is for a schedule II opioid drug. 04/24/20 25 Active fexofenadine (ANISH ODT) 30 MG disintegrating tablet Take 60 mg by mouth Active Active Problems Problem Noted Date Diagnosed Date Tonsil stone 06/10/2025 Encounters Date Type Department Care Team Description 06/10/2025 9:40 AM EDT Office Visit [facility] (O[facility]ology), [address] [address] Jany Grider MD Tonsil stone (Primary Dx) from Last 3 Months Family History Medical [...] drink = 0.6 oz pur e alcohol) Comments Unknown Sex and Gender Information Value [...] - Inhaled Oxygen Concentration - - Weight 61.4 kg (135 lb 6.4 oz) 06/10/2025 9:54 A M EDT Height 164.2 cm (5' 4.65 ) 06/10/2025 9:54 AM ED T Body Mass Index 22.78 06/10/2025 9:54 AM EDT Plan of Treatment Health Maintenance Due Date Last Done Comments DTaP/TDAP/TD VACCINES (1 - Tdap) 2011 ADOLESCENT HIV SCREENING 2017 COVID-19 Vaccine (2023-2 5 season) 2025 INFLUENZA (#1) 2025 NIRSEVIMAB VACCINES UNDER 8 MONTHS Aged Out No longer eligible based on patient's age to complete this topic Insurance SUZIE Mukherjee OPEN ACCESS PLUS Care Teams Printer Technician Relationship Specialty Start Date End Date Eunice Gavin MD [address] [place] [address] [address] [place], [place] [address] PCP - General General Pediatrics 04/26/24
--- OUTSIDE RECORDS SUMMARY | 2025-07-19 13:02 | XMS_ITS ---
Author Name [facility] Organization Unknown Results Test Name/Text Value Interpretation Date Range Source LAB AP CLINICAL INFORMATION PSO vs AD Normal 12/14/2024 [facility] LAB AP DIAGNOSIS COMMENT Received from [facility], [address], [place] [address], are two slides labeled [id number], L1 \T\ L2 and one block labeled [id number] , which are retained for our files. Normal 12/14/2024 [facility] UCONNPATH LAB AP GROSS DESCRIPTION Received in formalin is a punch biopsy measuring 0.2 cm in diameter. The specimen is submitted entirely in one cassette. (Gross description performed by [facility].) Normal 12/14/2024 [facility] History of Medication Use Medication Directions Dispensed Refills Start Date End Date Stat us amoxicillin-clavulan ate (AUGMENTIN) 875-125 mg per tablet Take 1 tablet by mouth every 12 (twelve) hours for 10 days. 02/18/2025 active clindamycin (CLEOCIN T) 1 % lotion APPLY TO FACE EVERY MORNING 02/11/2025 active fluocinolone (DERMA-SMOOTHE) 0.01 % topical oil APPLY TO SCALP NIGHTLY AND COVER WITH HAIR CAP 02/11/2025 active ketoconazole (NIZORAL) 2 % cream APPLY TO RASH TWICE A DAY UNTILL CLEAR 02/11/2025 active acetaminophen (TYLENOL) tablet 975 mg 975 mg, Oral, Once, On Tue02/08/25 at 0900, For 1 dose 02/08/2025 completed risankizumab-rzaa (SKYRIZI) 600 mg in sodium chloride (NS) 0.9 % 250 mL IVPB 600 mg, Intravenous, Administer over 1 Hours, Once, On Tue02/08/25 at 0900, For 1 dose, Allow diluted solution to come to room temperature prior to administration. Do not administer in the same IV line with other medications. 02/08/2025 completed risankizumab-rzaa (SKYRIZI) 360 mg/2.4 mL (150 mg/mL) On-body Injector 360mg / 2.4mL subcutaneous injection once every 8 weeks via OBI (on-body injector). 01/21/2025 active risankizumab-rzaa (Skyrizi) 360 mg/2.4 mL injection 360mg / 2.4mL subcutaneous injection once every 8 weeks via OBI (on-body injector). 01/21/2025 active clobetasol (TEMOVATE) 0.05 % cream Apply topically. 12/10/2024 active clobetasoL (TEMOVATE) 0.05 % cream Apply topically. 12/10/2024 active OMEprazole (PriLOSEC) 40 MG capsule Take 1 capsule (40 mg total) by mouth every morning before breakfast. 12/04/2024 active triamcinolone (KENALOG) 0.025 % ointment 2 (two) times daily. to affected area 12/03/2024 active sertraline (ZOLOFT) 25 mg tablet Take 1 tablet (25 mg total) by mouth daily. 08/17/2024 active sertraline (ZOLOFT) 25 MG tablet Please see attached for detailed directions 08/17/2024 active inFLIXimab-dyyb (INFLECTRA) 100 mg injection Inject 40 mLs (400 mg total) into the vein. 06/25/2024 aborted ondansetron (ZOFRAN) 4 mg tablet Take 1 tablet (4 mg total) by mouth. 06/25/2024 active ondansetron (ZOFRAN) 4 MG tablet Take 4 mg by mouth. 06/25/2024 active pantoprazole (PROTONIX) 40 mg tablet Take 1 tablet (40 mg total) by mouth. 09/22/2023 active PANTOprazole (PROTONIX) 40 MG tablet Take 1 tablet by mouth 09/22/2023 active OMEprazole (PriLOSEC OTC) 20 MG tablet Take 20 mg by mouth every morning before breakfast. aborted fexofenadine (ANISH ODT) 30 mg disintegrating tablet Take 2 tablets (60 mg total) by mouth. active fexofenadine (ANISH ODT) 30 MG disintegrating tablet Take 60 mg by mouth 2 (two) times a day. active inFLIXimab-dyyb (INFLECTRA IV) Infuse 600 mg into a venous catheter Every 6 Weeks. active PANTOprazole (PROTONIX) 40 MG EC tablet Take 40 mg by mouth every morning before breakfast. active Allergies Allergen Reaction Severity Comment Documented Date Source Statu s CORN DIARRHEA 02/08/2025 [facility] active POLLEN EXTRACTS CONGESTION 11/16/2024 [facility] active BEE POLLEN THROAT CLOSES 09/07/2024 [facility] ac tive SEASONAL 09/07/2024 [facility] active BEE VENOM PROTEIN (HONEY BEE) THROAT CLOSES [facility] Problems Problem Status Onset Date Problem Type Date of Resolution Source Acute upper respiratory infection due to respiratory syncytial virus (RSV) active 2024-11-16 ProblemAct [facility] Asthma active 2025-01-13 ProblemAct [facility] Acute cough active 2024-11-16 ProblemAct [facility] Infliximab long-term use active 2025-01-13 ProblemAct [facility] Crohn's disease of both small and large intestine active 2025-01-13 ProblemAct [facility] Sore throat active 2025-02-18 ProblemAct [facility] Streptococcal pharyngitis active 2025-01-13 ProblemAct [facility] Crohn's disease of colon with complication active 2025-01-17 ProblemAct [facility] Crohn's disease of both small and large intestine without complication active 2024-12-29 ProblemAct [facility] Impacted cerumen of right ear active EncounterDiagnosisAct [facility] Otorrhea of right ear active EncounterDiagnosisAct [facility] Immunizations Vaccine Date Source Lot Number Status Influenza, split virus, triv alent, Preservative Free 09/23/2021 [facility] [id number] completed HPV, quadrivalent 08/22/2018 [facility] [id number] complet ed Influenza, split virus, triv alent, Preservative Free 08/22/2018 [facility] [id number] completed HPV, quadrivalent 10/20/2017 [facility] [id number] complet ed Influenza, trivalent, inject able, contains preservative 10/20/2017 [facility] [id number] completed Influenza, trivalent, inject able, contains preservative 10/12/2016 [facility] [id number] completed Influenza, trivalent, inject able, contains preservative 08/28/2015 [facility] ARORA completed Meningococcal ACWY, unspecified formulation 08/28/2015 [facility] AROR[facility] completed Tdap 08/28/2015 [facility] ARORA completed Hep A-Hep B 09/27/2014 [facility] UNBright completed Influenza, trivalent, inject able, contains preservative 09/27/2014 [facility] ARORA completed Hep A-Hep B 09/21/2013 [facility] AR[facility] completed Influenza, trivalent, inject able, contains preservative 09/21/2013 [facility] ARORA completed Influenza, trivalent, inject able, contains preservative 08/28/2012 [facility] ARORA completed Influenza, trivalent, inject able, contains preservative 09/27/2011 [facility] ARORA completed Influenza, trivalent, inject able, contains preservative 08/07/2010 [facility] ARORA completed H1N1 for historical documentation only 09/30/2009 [facility] UNK completed DTaP 09/22/2009 [facility] UNBright completed MMR 09/22/2009 [facility] ARORA completed Influenza, trivalent, inject able, contains preservative 09/12/2008 [facility] ARORA completed Polio (IPV) 09/12/2008 [facility] ARORA completed Varicella, live 09/12/2008 [facility] ARORA completed Influenza, trivalent, inject able, contains preservative 09/01/2007 [facility] UNBright completed CExR-UhtX-XQU 08/18/2006 [facility] UNBright completed Influenza, unspecified formulation 08/18/2006 [facility] [id number] completed Pneumococcal conjugate PCV 7 08/18/2006 [facility] UNK completed DTaP 11/25/2005 [facility] UNBright completed Hib, unspecified formulation 11/25/2005 [facility] UN[facility] completed Pneumococcal conjugate PCV 7 11/25/2005 [facility] [id number] completed Influenza, unspecified formulation 08/24/2005 [facility] U NK completed MMR 08/24/2005 [facility] UNK completed Varicella, live 08/24/2005 [facility] UNK completed Hib, unspecified formulation 03/13/2005 [facility] UNK completed Pneumococcal conjugate PCV 7 03/13/2005 [facility] [id number] completed Polio (IPV) 03/13/2005 [facility] UNK completed NGdL-GciZ-LML 2004 [facility] UNK completed Hib, unspecified formulation 2004 [facility] UNK completed Pneumococcal conjugate PCV 7 2004 [facility] completed MCiA-HqfV-VWY 2004 [facility] UN[facility] completed Hib, unspecified formulation 2004 [facility] UNK completed Pneumococcal conjugate PCV 7 2004 [facility] UNK completed Hep B, unspecified formulation 2004 [facility] UNK completed Encounters Encounter Type Encounter Reason Primary Diagnosis Location Date Ambulatory Acute pharyngitis Acute pharyngitis [facility] 07/17/2025 Ambulatory Other chronic diseases of tonsils and adenoids Other chronic diseases of tonsils and adenoids [facility] ([place] 06/10/2025 Ambulatory Follow-up Follow-up [facility] 04/15/2025 Ambulatory Crohn's disease of both small and large intestine without complications Crohn's disease of both small and large intestine without complications [facility] 04/05/2025 Ambulatory Crohn's disease of both small and large intestine without complications Crohn's disease of both small and large intestine without complications [facility] 03/08/2025 Ambulatory Otorrhea, right ear Otorrhea, right ear [facility] ([place]) 02/22/2025 Ambulatory Acute pharyngitis Acute pharyngitis [facility] 02/18/2025 Ambulatory Follow-up Follow-up [facility] 02/11/2025 Ambulatory Crohn's disease of both small and large intestine without complications Crohn's disease of both small and large intestine without complications [facility] 02/08/2025 Ambulatory Follow-up Follow-up [facility] 01/17/2025 Ambulatory Acute pharyngitis Acute pharyngitis [facility] 01/13/2025 Ambulatory Crohn's disease of large intestine without complications Crohn's disease of large intestine without complications [facility] 12/04/2024 Ambulatory Cough Cough [facility] 11/16/2024 Ambulatory Tonsillitis Tonsillitis [facility] ([place]) 09/07/2024 Care Team Organization Name Specialty Phone Email Start Date End Da te [facility] 01/16/2025 05/14/2025 [facility] 11/17/2024 [facility] 09/08/2024 07/09/20 [facility] ([place] Primary Care 09/08/2024 [facility] Primary Care 08/20/2024 [facility] 08/08/2024 [facility] 2023 [facility] 07/03/2024
--- OUTSIDE RECORDS SUMMARY | 2025-07-19 13:02 | XMS_ITS | Clinical Summary ---
Author Organization [facility] Address [address] [place] [address] Care Team Providers Care Game Tester Name Role Phone Eunice Gavin MD Primary Care Provider [phone] Dru Baptiste MD Unavailable Unavailable Allergies Active Allergy Reactions Criticality Noted Date Comments Vance Diarrhea Low 02/08/2025 Medications ondansetron (ZOFRAN) 4 [...] intestine without complication 12/29/2024 Assessment & Plan (04/15/2025 1:02 PM EDT): Patient with a hx of crohns disease. Diagnosed in 2020. Most recent colonoscopy per patient in 07/2024 - no records for review. Mother tells me intestines looked as bad as the skin Had been on inflectra 600 mg every 6 weeks which worked well for about 3 years, however stopped earlier this year duet to worsening psoriais on hand, now on feet and scalp. Worsening joint pains as well. Started skyrizi 02/2025 MR-E for restaging- normal 02/19/2025 CBC, CRP, SED rate and calprotectin normal Plans for rheumatology visit 06/2025- will need to wait 16 weeks before determined if her psoriasis is not responding to skyrizi Assessment & Plan (01/17/2025 1:10 PM EDT): [...] Encounters Date Type Department Care Team Description 06/21/[address] [facility] [address] [place] [address] Nina Anne PA Prior Authorization (Skyrizi 360mg/2.4ml OBI (Renewal)) from Last 3 Months Family History Medical [...] Sign Reading Time Taken Comments Blood Pressure 124/70 04/15/2025 8:45 AM EDT Pulse 90 04/05/2025 8:51 AM EDT Temperature 36.4 C (97.6 F) 04/05/2025 8:51 AM EDT Respiratory Rate 16 04/05/2025 8:51 AM EDT Oxygen Saturation 98% 04/05/2025 8:51 AM EDT Inhaled Oxygen Concentration - - Weight 62.9 kg (138 lb 11.2 oz) 04/15/2025 8:45 AM EDT Height 162.6 cm (5' 4 ) 04/15/2025 8:45 AM EDT Body Mass Index 23.81 04/15/2025 8:45 AM EDT Plan of Treatment Health Maintenance Due Date Last Done Comments Hepatitis C Virus Screening 2004 COVID-19 Vaccine (#1) 2009 HIV Screening 2017 HPV Vaccines (1 - 3-dose series) 2019 DTaP/Tdap/Td Vaccines (1 - Tdap) 2023 Hepatitis B Vaccines (1 of 3 - 19+ 3-dose series) 2023 Influenza Vaccine 06/07/2025 09/23/2021, , 08/22/2018, Additional history exists Influenza Vaccine Discontinued 09/23/2021, , 08/22/2018, Additional history exists Quantiferon Gold TB Discontinued 01/17/2025 Pneumococcal Vaccine: Pediatric (0-5 Years) and At-Risk Patients (6 to 49 Years) Aged Out No longer eligible based on patient's age to complete this topic Procedures Procedure Name Priority Date/Time Associated Diagnosis Comments QUANTIFERON(R)-TB GOLD PLUS, 1 TUBE Routine 01/17/2025 3:09 PM EDT Crohn's disease of colon without complication (HCC) from Last 3 Months or Most Recently Relevant to Health Maintenance Results * Quantiferon ?? -TB Gold Plus, 1 Tube (01/17/2025 3:09 PM EDT) Quantiferon TB Gold Plus, 1T NEGATIVE NEGATIVE [facility] Comment: Negative test result. M. tuberculosis complex infection unlikely. Quantiferon NIL 0.02 IU/mL [facility] Quantiferon Mitogen-NIL >10.00 IU/mL [facility] Quantiferon TB1-NIL 0.00 IU/mL [facility] Quantiferon TB2-NIL 0.00 IU/mL [email or web address] Comment: The Nil tube value reflects the [...] T-lymphocytes. For additional information, please refer to https://education.[employer]/faq/WEX957 (This link is being provided for informational/ educational purposes only.) Blood Blood specimen / Unknown 01/17/2025 3:09 PM EDT 01/17/2025 3:10 PM EDT Narrative [facility] - 01/20/2025 10:16 PM EDT FASTING:NO FASTING: NO Maritza Rashid APRN LAB BLOOD ORDERABLES Final Result [facility] [address] [place] [id number] from Last 3 Months or Most Recently Relevant to Health Maintenance Insurance [facility] Member Subscriber Plan / Payer (Ef fective 2024-Present) Name:Emily Bishop Relation to Subscriber:Self Name:Emily Bishop Payer ID:[id number] (NA) Type:Not on file Address: [facility] [id number] [place] [phone] [facility] [employer] H[employer] Care Teams Game Tester Relationship Specialty Start Date End Date Eunice Gavin MD [address] [place] [address] PCP - General 08/20/24 Dru Baptiste MD [address] [place] [address] Pediatric, General 12/05/24
--- OUTSIDE RECORDS SUMMARY | 2025-07-19 13:02 | XMS_ITS | Encounter Summary ---
Author Organization [facility] Address [address] [place] [address] Care Team Providers Care Water Resource Specialist Name Role Phone Eunice Gavin MD Primary Care Provider Dru Baptiste MD Unavailable Unavailable Encounter Details Date Type Department Care Team (Late st Contact Info) Description 01/29/2025 Scanned Document [facility] [address] [place] [id number] Nina Anne, PA 113 [facility] [address] [place] [phone] Social History Tobacco Use Types Packs/Day Years [...] on filedocumented in this encounter Care Teams Water Resource Specialist Relationship Specialty Start Date End Date Eunice Gavin MD [address] [facility] [place] [address] PCP - General 08/20/24 Dru Baptiste MD [address] [place] [address] Pediatric, General 12/05/24 documented as of this encounter
== END 2025-07-19 11:46 | disposition home or self-care (01) ==
PROVIDERS: PCP Pediatrics; Visit Provider Physician Assistant
DX: R05.9 Cough, unspecified (principal); R11.10 Vomiting, unspecified

== ENCOUNTER 2025-07-19 11:06 | Outpatient (REF) | payer OTHER, SELFPAY ==
[2025-07-19 14:19] LABS: Chlamydia pneumoniae PCR Not Detected (Not Detect.); Coronavirus 229E PCR Not Detected (Not Detect.); Coronavirus HKU1 PCR Not Detected (Not Detect.); Coronavirus NL63 PCR Not Detected (Not Detect.); Coronavirus OC43 PCR Not Detected (Not Detect.); RSV PCR Not Detected (Not Detect.); Rhino/Enterovirus PCR Detected (Not Detect.)
[2025-07-19 14:36] LABS: Influenza A H1 PCR Not Detected (Not Detect.); Influenza A H1-2009 PCR Not Detected (Not Detect.); Influenza A H3 PCR Not Detected (Not Detect.); SARS-CoV-2 PCR Not Detected (Not Detect.)
== END 2025-07-19 11:07 | disposition home or self-care (01) ==
LOC: HO.LAB 11:06
PROVIDERS: PCP Pediatrics; Visit Provider Physician Assistant
DX: R05.9 Cough, unspecified (principal); R11.10 Vomiting, unspecified; J06.9 Acute upper respiratory infection, unspecified
CPT/HCPCS: 87633